=== PATIENT | female | born 1940 | race Caucasian/White ===

== ENCOUNTER 2016-08-25 06:51 | Inpatient (IN) | payer OTHER ==
[~2016-08-25] VITALS: Ht 167.6 cm; Wt 70.0 kg
[2016-08-25] MEDS ORDERED: PROP10TA7 PO ×2 (07:18→10:33)
[2016-08-25] MEDS ORDERED: DILT-115 PO (07:18)
--- NOTE | 2016-08-25 07:38 | EMERGENCY ROOM VISIT NOTE ---
History First contact with patient: 06:59 Chief Complaint: SWELLING TO EXTREMITY Stated Complaint: SWOLLEN RIGHT LEG History of Present Illness The patient is a 76 year old female who presents to the Emergency Room with complaints of right leg pain. The patient states that 2 days ago she noticed pain in the right medial thigh. She states it has progressively worsened. She describes it as a pulling sensation and rates her discomfort an 8/10 at its worst. The patient states that she noticed redness yesterday. She states that the redness has worsened. She denies any fevers, chills, sweats, joint pain, nausea, vomiting, diarrhea. She denies any pain in her chest or trouble breathing. The patient does report that her daughter had edema in the past. She states that her brother has also had blood clots. She states she has never personally had a clots. They do not know of any family history of coagulopathy that has been diagnosed. Review of Systems A 10 system review of systems was completed with positives and pertinent negatives listed in the HPI. Past Medical/Surgical History Medical Problems: (1) CKD (chronic kidney disease) stage 3, GFR 30-59 ml/min (2) DVT (deep venous thrombosis) (3) Hypertension Surgical Problems: (1) History of tubal ligation Social History Smoking Status: Never Smoker Housing Status: lives with family Current/Historical Medications Scheduled Cholecalciferol (Vitamin D3), 2,000 UNITS PO DAILY Diltiazem Hcl Ext Rel (Tiazac), 240 MG PO DAILY Propranolol (Inderal), 15 MG PO DAILY Allergies Coded Allergies: No Known Allergies (Unverified , 08/25/16) Physical Exam Vital Signs Date Time Temp Pulse Resp B/P Pulse Ox O2 Delivery O2 Flow Rate FiO2 08/25/16 09:44 68 16 128/68 98 Room Air 08/25/16 08:23 70 18 147/83 98 Room Air 08/25/16 06:56 36.6 92 16 142/77 94 Room Air Physical Exam VITALS: Vitals are noted on the nurse's note and reviewed by myself. Vital signs stable. The patient is afebrile. GENERAL: This is a 76-year-old female, in no acute distress, nondiaphoretic, well-developed well-nourished. SKIN: There is macular erythema noted along the right medial thigh from the knee nearly to the groin. There is no fluctuance or drainage. There is no tenting of the skin. Capillary reflex less than 2 seconds. HEAD: Normocephalic atraumatic. EARS: The external ears are normal in appearance. EYES: Pupils equal round and reactive to light and accommodation. Conjunctivae without injection, sclerae without icterus. Extraocular movements intact. NOSE: Patent, turbinates without inflammation or discharge. MOUTH: Mucous membranes moist. Tonsils are not enlarged. Pharynx without erythema or exudate. Uvula midline. Airway patent. Tongue does not deviate. NECK: Supple without nuchal rigidity. No JVD. HEART: Regular rate and rhythm. LUNGS: Clear to auscultation bilaterally without wheezes, rales or rhonchi. No retractions or accessory muscle use. MUSCULOSKELETAL: No muscle atrophy, noted. Full range of motion without joint tenderness in all extremities. There is tenderness to palpation only over the area of erythema. Normal gait. Strength 5/5 throughout. NEURO: Patient was alert and oriented to person place and time. No focal neurological deficits. Medical Decision & Procedures ER Provider Diagnostic Interpretation: RIGHT LOWER EXTREMITY VENOUS DOPPLER HISTORY: right leg pain, redness medial thigh Right COMPARISON STUDY: None. FINDINGS: There is thrombus identified within the right common femoral vein, greater saphenous vein, superficial femoral vein, popliteal vein, posterior tibial veins, and peroneal veins. IMPRESSION: Extensive right lower extremity superficial and deep vein thrombosis as described above. Laboratory Results 08/25/16 07:37 Red Blood Count 4.64, Mean Corpuscular Volume 87.3, Mean Corpuscular Hemoglobin 30.4, Mean Corpuscular Hemoglobin Concent 34.8, Mean Platelet Volume 9.2, Neutrophils (%) (Auto) 80.6, Lymphocytes (%) (Auto) 10.7, Monocytes (%) (Auto) 7.5, Eosinophils (%) (Auto) 0.8, Basophils (%) (Auto) 0.3, Neutrophils # (Auto) 5.93, Lymphocytes # (Auto) 0.79, Monocytes # (Auto) 0.55, Eosinophils # (Auto) 0.06, Basophils # (Auto) 0.02 08/25/16 07:37 Test 08/25/16 07:37 White Blood Count 7.36 K/uL (4.8-10.8) Red Blood Count 4.64 M/uL (4.2-5.4) Hemoglobin 14.1 g/dL (12.0-16.0) Hematocrit 40.5 % (37-47) Mean Corpuscular Volume 87.3 fL (80-100) Mean Corpuscular Hemoglobin 30.4 pg (25-34) Mean Corpuscular Hemoglobin Concent 34.8 g/dl (32-36) Platelet Count 172 K/uL (130-400) Mean Platelet Volume 9.2 fL (7.4-10.4) Neutrophils (%) (Auto) 80.6 % Lymphocytes (%) (Auto) 10.7 % Monocytes (%) (Auto) 7.5 % Eosinophils (%) (Auto) 0.8 % Basophils (%) (Auto) 0.3 % Neutrophils # (Auto) 5.93 K/uL (1.4-6.5) Lymphocytes # (Auto) 0.79 K/uL (1.2-3.4) Monocytes # (Auto) 0.55 K/uL (0.11-0.59) Eosinophils # (Auto) 0.06 K/uL (0-0.5) Basophils # (Auto) 0.02 K/uL (0-0.2) RDW Standard Deviation 44.2 fL (36.4-46.3) RDW Coefficient of Variation 14.0 % (11.5-14.5) Immature Granulocyte % (Auto) 0.1 % Immature Granulocyte # (Auto) 0.01 K/uL (0.00-0.02) Prothrombin Time 10.9 SECONDS (9.0-12.0) Prothromb Time International Ratio 1.0 (0.9-1.1) Activated Partial Thromboplast Time 31.5 SECONDS (21.0-31.0) Partial Thromboplastin Ratio 1.2 Anion Gap 7.0 mmol/L (3-11) Est Creatinine Clear Calc Drug Dose 36.7 ml/min Estimated GFR () 50.5 Estimated GFR (Non- 43.6 BUN/Creatinine Ratio 17.8 (10-20) Calcium Level 8.9 mg/dl (8.5-10.1) Total Bilirubin 0.5 mg/dl (0.2-1) Aspartate Amino Transf (AST/SGOT) 23 U/L (15-37) Alanine Aminotransferase (ALT/SGPT) 19 U/L (12-78) Alkaline Phosphatase 87 U/L (45-117) Total Protein 7.5 gm/dl (6.4-8.2) Albumin 3.1 gm/dl (3.4-5.0) Globulin 4.4 gm/dl (2.5-4.0) Albumin/Globulin Ratio 0.7 (0.9-2) ED Course The patient was seen and examined. Previous visits were reviewed. The patient does not have a fever or leukocytosis. She is not anemic. She does not have any significant electrolyte abnormalities. Ultrasound of the right lower extremity reveals extensive superficial and deep vein thrombosis The patient has had right leg pain over the last several days. She has not had any chest pain or trouble breathing. She has extensive superficial and deep vein thromboses in the right leg. There is a reported history of blood clots but no diagnosis of genetic coagulopathy. The patient would benefit from further evaluation and management in the hospital. [facility] patient. The patient was also seen and examined by who agrees with the assessment and treatment plan. Medical Decision The differential diagnosis includes cellulitis, DVT, superficial thrombophlebitis, PE, among others Impression Primary Impression: DVT (deep venous thrombosis) Additional Impressions: Phlebitis Pain and swelling of right lower extremity Departure Information Referrals Jazz Artis PA-C (PCP) Patient Instructions [facility] Problem Qualifiers Primary Impression: DVT (deep venous thrombosis)
[2016-08-25 08:01] LABS: HEMATOCRIT 40.5 % (37-47); MEAN CELL VOLUME 87.3 fL (80-100); MEAN CORPUSCULAR HEMOGLOBIN 30.4 pg (25-34); MEAN CORPUSCULAR HGB CONC 34.8 g/dl (32-36); MEAN PLATELET VOLUME 9.2 fL (7.4-10.4); PLATELET COUNT 172 K/uL (130-400); RED BLOOD COUNT 4.64 M/uL (4.2-5.4); WHITE BLOOD COUNT 7.36 K/uL (4.8-10.8)
[2016-08-25 08:09] LABS: PARTIAL THROMBOPLASTIN RATIO 1.2; PROTHROMBIN TIME (PATIENT) 10.9 SECONDS (9.0-12.0)
[2016-08-25 08:18] LABS: BUN/CREATININE RATIO 17.8 (10-20); CALCIUM 8.9 mg/dl (8.5-10.1); CREATININE 1.2 mg/dl (0.60-1.20)
[2016-08-25 08:21] LABS: ALB/GLOB RATIO 0.7 (0.9-2)
[2016-08-25 08:23] LABS: BASO % 0.3 %; BASO ABS # 0.02 K/uL (0-0.2); COMPLETE YES; EOS % 0.8 %; IG% 0.1 %; LYMPH % 10.7 %; LYMPH ABS # 0.79 K/uL (1.2-3.4); MONO % 7.5 %; NEUT % 80.6 %
--- NOTE | 2016-08-25 08:59 | DIAGNOSTIC IMAGING REPORT ---
RIGHT LOWER EXTREMITY VENOUS DOPPLER HISTORY: right leg pain, redness medial thigh Right COMPARISON STUDY: None. FINDINGS: There is thrombus identified within the right common femoral vein, greater saphenous vein, superficial femoral vein, popliteal vein, posterior tibial veins, and peroneal veins. IMPRESSION: Extensive right lower extremity superficial and deep vein thrombosis as described above. Electronically signed by: Lalo Nina M.D. 08/25/2016 8:57 AM Dictated Date/Time: 08/25/2016 8:56 AM
--- NOTE | 2016-08-25 09:33 | EMERGENCY ROOM VISIT NOTE ---
ED Visit Note First contact with patient: 06:59 76-year-old female with right leg pain and swelling. The patient was fully evaluated by Kim Thomason PA-C. Please see her note. I also independently evaluated the patient. DVT was seen on ultrasound. The patient's significant swelling and therefore will should be admitted for anticoagulation therapy.
[2016-08-25] MEDS ORDERED: ACETAMINOPHEN 325 MG TAB PO PRN (10:15)
[2016-08-25] MEDS ORDERED: ONDANSETRON INJ 2 MG/ML 2 ML VIAL IV PRN (10:15)
[2016-08-25] MEDS ORDERED: PROP80TA2 PO (10:26)
[2016-08-25] MEDS ORDERED: CHOL1000 PO (10:26)
--- NOTE | 2016-08-25 10:48 | History and Physical ---
History & Physical Date & Time of Service: Aug 25, 2016 at 10:35 Chief Complaint: Swollen Right Leg Primary Care Physician: Jazz Artis PA-C History of Present Illness Source: patient This is a 76 y/o female with PMHx of CKD stage 3 and HTN who presents to the ED c/o RLE pain x 2 days. Pt reports that 2 days ago she developed R medial thigh pain that she describes as "achy" pain that increases to an 8/10 when she stands. Over the past 2 days the R medial thigh became progressively more painful, erythematous and swollen. Pt denies recent surgeries or travel. Pt has no history of blood clots but she does have a + FmHx of clots. Pt denies fever/ chills, diaphoresis, chest pain, palpitations, SOB, abd pain, N/V, bowel or bladder issues, lightheadedness/dizziness. In the ED, vitals are stable. labs reviewed are unremarkable. RLE US + extensive RLE superficial and DVT. Pt will be admitted for further evaluation and treatment. Past Medical/Surgical History Medical Problems: (1) CKD (chronic kidney disease) stage 3, GFR 30-59 ml/min Status: Chronic (2) Hypertension Status: Chronic Surgical Problems: (1) History of tubal ligation Status: Resolved Social History Smoking Status: Never Smoker Alcohol Use: none Drug Use: none Allergies Coded Allergies: No Known Allergies (Unverified , 08/25/16) Home Medications Scheduled Cholecalciferol (Vitamin D3), 2,000 UNITS PO DAILY Diltiazem Hcl Ext Rel (Tiazac), 240 MG PO DAILY Propranolol (Inderal), 15 MG PO DAILY Review of Systems Constitutional: No chills, No fatigue, No fever, No sweats, No weakness Eyes: No worsening of vision ENT: No hearing loss Respiratory: No cough, No shortness of breath Cardiovascular: + edema, No chest pain, No claudication, No palpitations Abdomen: No constipation, No diarrhea, No nausea, No pain, No vomiting Musculoskeletal: + swelling, No calf pain Genitourinary - Female: No dysuria Neurologic: No weakness Psychiatric: No depression symptoms Endocrine: No fatigue Hematologic / Lymphatic: No abnormal bleeding/bruising Integumentary: No new/changing skin lesions Physical Exam Vital Signs Date Time Temp Pulse Resp B/P Pulse Ox O2 Delivery O2 Flow Rate FiO2 4/4/17 09:44 68 16 128/68 98 Room Air 08/25/16 08:23 70 18 147/83 98 Room Air 08/25/16 06:56 36.6 92 16 142/77 94 Room Air General Appearance: WD/WN, no apparent distress, + pertinent finding (Pt is sitting in bed with daughter at bedside ) Head: normocephalic, atraumatic Eyes: normal inspection ENT: hearing grossly normal Neck: supple Respiratory/Chest: chest non-tender, lungs clear, normal breath sounds, no respiratory distress Cardiovascular: regular rate, rhythm, no murmur Abdomen/GI: normal bowel sounds, non tender, soft Back: normal inspection Extremities/Musculoskelatal: no pedal edema, + pertinent finding (swelling and erythema noted to R medial thigh) Neurologic/Psych: alert, normal mood/affect, oriented x 3 Skin: normal color, warm/dry Diagnostics Laboratory Results Results Past 24 Hours Test 08/25/16 07:37 08/25/16 10:15 Range/Units White Blood Count 7.36 4.8-10.8 K/uL Red Blood Count 4.64 4.2-5.4 M/uL Hemoglobin 14.1 12.0-16.0 g/dL Hematocrit 40.5 37-47 % Mean Corpuscular Volume 87.3 80-100 fL Mean Corpuscular Hemoglobin 30.4 25-34 pg Mean Corpuscular Hemoglobin Concent 34.8 32-36 g/dl Platelet Count 172 130-400 K/uL Mean Platelet Volume 9.2 7.4-10.4 fL Neutrophils (%) (Auto) 80.6 % Lymphocytes (%) (Auto) 10.7 % Monocytes (%) (Auto) 7.5 % Eosinophils (%) (Auto) 0.8 % Basophils (%) (Auto) 0.3 % Neutrophils # (Auto) 5.93 1.4-6.5 K/uL Lymphocytes # (Auto) 0.79 1.2-3.4 K/uL Monocytes # (Auto) 0.55 0.11-0.59 K/uL Eosinophils # (Auto) 0.06 0-0.5 K/uL Basophils # (Auto) 0.02 0-0.2 K/uL RDW Standard Deviation 44.2 36.4-46.3 fL RDW Coefficient of Variation 14.0 11.5-14.5 % Immature Granulocyte % (Auto) 0.1 % Immature Granulocyte # (Auto) 0.01 0.00-0.02 K/uL Prothrombin Time 10.9 9.0-12.0 SECONDS Prothromb Time International Ratio 1.0 0.9-1.1 Activated Partial Thromboplast Time 31.5 21.0-31.0 SECONDS Partial Thromboplastin Ratio 1.2 Sodium Level 141 136-145 mmol/L Potassium Level 4.0 3.5-5.1 mmol/L Chloride Level 106 98-107 mmol/L Carbon Dioxide Level 28 21-32 mmol/L Anion Gap 7.0 3-11 mmol/L Blood Urea Nitrogen 21 7-18 mg/dl Creatinine 1.20 0.60-1.20 mg/dl Est Creatinine Clear Calc Drug Dose 36.7 ml/min Estimated GFR () 50.5 Estimated GFR (Non- 43.6 BUN/Creatinine Ratio 17.8 10-20 Random Glucose 107 70-99 mg/dl Calcium Level 8.9 8.5-10.1 mg/dl Total Bilirubin 0.5 0.2-1 mg/dl Aspartate Amino Transf (AST/SGOT) 23 15-37 U/L Alanine Aminotransferase (ALT/SGPT) 19 12-78 U/L Alkaline Phosphatase 87 45-117 U/L Total Protein 7.5 6.4-8.2 gm/dl Albumin 3.1 3.4-5.0 gm/dl Globulin 4.4 2.5-4.0 gm/dl Albumin/Globulin Ratio 0.7 0.9-2 Diagnostic Radiology RLE US IMPRESSION: Extensive right lower extremity superficial and deep vein thrombosis as described above. Impression Assessment and Plan EXTENSIVE RLE DVT pt presented with RLE pain, erythema and swelling; no h/o blood clots -admit to med/surg -vitals stable; saturating well on room air -RLE US + extensive RLE superficial and DVT -obtain hypercoagulable workup -start Coumadin and bridge with Lovenox -monitor INR daily CKD STAGE 3 -creatinine 1.2 (baseline =1.6-1.8) -continue to monitor prp and avoid nephrotoxic agents when able -follows with paula Ramos HTN -BP stable -cont diltiazem and propranolol -monitor DVT PROPHYLAXIS -Lovenox; transition to Coumadin CODE STATUS -DNR per discussion with patient upon admission DISPO Pt seen in collaboration with Dr. Robles. Please see his addendum for further details. Thanks! ATTENDING NOTE Patient seen & examined at bedside. Reviewed the above History & Physical and confirmed the findings in person. Patient is diagnosed with a new Acute DVT in Right Lower Extremity. No provoking factor as per detailed history. Has been started on therapeutic dose of Lovenox as well Coumadin. Will follow Creatinine closely. Will follow PT/INR. Patient id DNR. Answered all the questions of the patient. Dick Robles MD Level of Care Med/Surg Resuscitation Status DO NOT RESUSCITATE VTE Prophylaxis VTE Risk Assessment Done? Y/N: Yes Risk Level: Moderate Given or contraindicated: Enoxaparin (Lovenox)SQ, Warfarin (Coumadin)
[2016-08-25 11:35] VITALS: BP 135/78; PULSE 65; TEMP 36.9; O2SAT 96; Ht 167.6 cm; Wt 70.0 kg
[2016-08-25 11:45] VITALS: O2SAT 96
[2016-08-25] MEDS ORDERED: WARFARIN SOD 5 MG TAB PO ONE (12:05)
[2016-08-25] MEDS: ENOXAPARIN 80 MG/0.8 ML SYR SQ SCH ×2 (14:46→23:09)
[2016-08-25 15:14] VITALS: BP 133/65; PULSE 65; TEMP 37.3; O2SAT 93
[2016-08-25 23:06] VITALS: BP 133/76; PULSE 70; TEMP 36.9; O2SAT 93
[2016-08-26 07:02] LABS: HEMATOCRIT 39.1 % (37-47); MEAN CELL VOLUME 87.7 fL (80-100); MEAN CORPUSCULAR HEMOGLOBIN 30.3 pg (25-34); MEAN CORPUSCULAR HGB CONC 34.5 g/dl (32-36); MEAN PLATELET VOLUME 9.5 fL (7.4-10.4); PLATELET COUNT 171 K/uL (130-400); RED BLOOD COUNT 4.46 M/uL (4.2-5.4); WHITE BLOOD COUNT 6.16 K/uL (4.8-10.8)
[2016-08-26 07:11] LABS: INR 1.1 (0.9-1.1); PROTHROMBIN TIME (PATIENT) 11.6 SECONDS (9.0-12.0)
[2016-08-26 07:29] LABS: BUN/CREATININE RATIO 15.7 (10-20); CALCIUM 8.8 mg/dl (8.5-10.1); CREATININE 1.3 mg/dl (0.60-1.20)
[2016-08-26 07:50] VITALS: BP 136/62; PULSE 74; TEMP 36.9; O2SAT 93
[2016-08-26 08:29] VITALS: O2SAT 93
[2016-08-26] MEDS ORDERED: PROPRANOLOL HCL 80 MG TAB PO SCH (09:00)
[2016-08-26] MEDS: CHOLECALCIFEROL 1000 INTER.UNIT TAB PO SCH (09:15)
[2016-08-26] MEDS: DILTIAZEM HCL 120 MG EXT REL CAP PO SCH (09:16)
[2016-08-26] MEDS: PROPRANOLOL HCL 10 MG TAB PO SCH (09:16)
[2016-08-26] MEDS: ENOXAPARIN 80 MG/0.8 ML SYR SQ SCH ×2 (09:18→21:43)
[2016-08-26 15:29] VITALS: BP 112/57; PULSE 60; TEMP 36.7; O2SAT 94
[2016-08-26] MEDS ORDERED: WARFARIN SOD 7.5 MG TAB PO SCH (16:00)
[2016-08-26] MEDS ORDERED: WARFARIN SOD 5 MG TAB PO SCH (16:00)
--- NOTE | 2016-08-26 18:04 | Progress Note ---
Internal Med Progress Note Date of Service: Aug 26, 2016. Provider Documentation: SUBJECTIVE: Patient is sitting comfortably in her bed and is in no acute distress. Denies any SOB or chest pain/pressure. Pain in the right leg is less in intensity. She has been able to ambulate short distances in the hallway. OBJECTIVE: Vital Signs-as noted below Examination: General Appearance: WD/WN, Sitting in her bed in no apparent distress, Head: normocephalic, atraumatic Eyes: normal inspection ENT: hearing grossly normal. Ears, Nose & Throat are normal looking. Neck: supple, midline trachea, No JVD. Respiratory/Chest: chest non-tender, lungs clear, normal breath sounds, no respiratory distress Cardiovascular: regular rate, rhythm, no murmur Abdomen/GI: normal bowel sounds, non tender, soft Back: normal inspection Extremities/Musculoskeletal: no pedal edema, swelling and erythema noted to R medial thigh which is resolving. Neurologic/Psych: alert, normal mood/affect, oriented x 3 Skin: normal color, warm/dry Lab data as noted below. ASSESSMENT & PLAN: Extensive Right Lower Extremity DVT: Patient presented with RLE pain, erythema and swelling; no h/o blood clots Clinically & hemodynamically stable. RLE US + extensive RLE superficial and DVT -Hypercoagulable workup is pending -Continue Coumadin and bridge with Lovenox for total minimum 5 days -monitor INR daily History Hypertension: BP stable -Continue diltiazem and propranolol -Monitor BP closely. CKD Stage III: Creatinine 1.3 (baseline =1.6-1.8) -continue to monitor prp and avoid nephrotoxic agents when able -Follows with paula Ramos -Avoid any Nephrotoxin DVT Prophylaxis: Sq Lovenox; Code Status: DNR per discussion with patient upon admission Disposition: Pending. Vital Signs: Date Time Temp Pulse Resp B/P Pulse Ox O2 Delivery O2 Flow Rate FiO2 08/26/16 15:29 36.7 60 16 112/57 94 Room Air 08/26/16 08:29 93 Room Air 08/26/16 07:50 36.9 74 16 136/62 93 Room Air 08/26/16 07:45 Room Air 08/25/16 23:06 36.9 70 16 133/76 93 Room Air 08/25/16 19:45 Room Air Lab Results: Results Past 24 Hours Test 08/26/16 06:22 Range/Units White Blood Count 6.16 4.8-10.8 K/uL Red Blood Count 4.46 4.2-5.4 M/uL Hemoglobin 13.5 12.0-16.0 g/dL Hematocrit 39.1 37-47 % Mean Corpuscular Volume 87.7 80-100 fL Mean Corpuscular Hemoglobin 30.3 25-34 pg Mean Corpuscular Hemoglobin Concent 34.5 32-36 g/dl RDW Standard Deviation 45.2 36.4-46.3 fL RDW Coefficient of Variation 14.1 11.5-14.5 % Platelet Count 171 130-400 K/uL Mean Platelet Volume 9.5 7.4-10.4 fL Prothrombin Time 11.6 9.0-12.0 SECONDS Prothromb Time International Ratio 1.1 0.9-1.1 Sodium Level 142 136-145 mmol/L Potassium Level 4.0 3.5-5.1 mmol/L Chloride Level 106 98-107 mmol/L Carbon Dioxide Level 28 21-32 mmol/L Anion Gap 8.0 3-11 mmol/L Blood Urea Nitrogen 20 7-18 mg/dl Creatinine 1.30 0.60-1.20 mg/dl Est Creatinine Clear Calc Drug Dose 33.9 ml/min Estimated GFR () 45.8 Estimated GFR (Non- 39.5 BUN/Creatinine Ratio 15.7 10-20 Random Glucose 91 70-99 mg/dl Calcium Level 8.8 8.5-10.1 mg/dl
[2016-08-26 23:31] VITALS: BP 133/70; PULSE 67; TEMP 36.8; O2SAT 93
[2016-08-27 07:18] LABS: INR 1.1 (0.9-1.1); PROTHROMBIN TIME (PATIENT) 11.6 SECONDS (9.0-12.0)
[2016-08-27 07:29] VITALS: BP 127/74; PULSE 72; TEMP 36.7; O2SAT 96
[2016-08-27] MEDS: PROPRANOLOL HCL 10 MG TAB PO SCH (10:35)
[2016-08-27] MEDS: CHOLECALCIFEROL 1000 INTER.UNIT TAB PO SCH (10:36)
[2016-08-27] MEDS: DILTIAZEM HCL 120 MG EXT REL CAP PO SCH (10:37)
[2016-08-27] MEDS: ENOXAPARIN 80 MG/0.8 ML SYR SQ SCH ×2 (10:38→21:19)
[2016-08-27 15:04] VITALS: BP 124/74; PULSE 60; TEMP 36.7; O2SAT 93
[2016-08-27] MEDS: WARFARIN SOD 10 MG TAB PO SCH (15:40)
--- NOTE | 2016-08-27 16:29 | Progress Note ---
Internal Med Progress Note Date of Service: Aug 27, 2016. Provider Documentation: SUBJECTIVE: Patient is sitting comfortably in her bed and is in no acute distress. Denies any SOB or chest pain/pressure. Pain in the right leg is less in intensity. She has been able to ambulate short distances in the hallway. OBJECTIVE: Vital Signs-as noted below Examination: General Appearance: WD/WN, Sitting in her bed in no apparent distress, Head: normocephalic, atraumatic Eyes: normal inspection ENT: hearing grossly normal. Ears, Nose & Throat are normal looking. Neck: supple, midline trachea, No JVD. Respiratory/Chest: chest non-tender, lungs clear, normal breath sounds, no respiratory distress Cardiovascular: regular rate, rhythm, no murmur Abdomen/GI: normal bowel sounds, non tender, soft Back: normal inspection Extremities/Musculoskeletal: no pedal edema, swelling and erythema noted to R medial thigh which is resolving. Neurologic/Psych: alert, normal mood/affect, oriented x 3 Skin: normal color, warm/dry Lab data as noted below. ASSESSMENT & PLAN: Extensive Right Lower Extremity DVT: Patient presented with RLE pain, erythema and swelling; no h/o blood clots Clinically & hemodynamically stable. RLE US + extensive RLE superficial and DVT -Hypercoagulable workup is pending -Continue Coumadin and bridge with Lovenox for total minimum 5 days -monitor INR daily -Will start teaching self-injection to patient History Hypertension: BP stable -Continue diltiazem and propranolol -Monitor BP closely. CKD Stage III: Creatinine 1.3 (baseline =1.6-1.8) -continue to monitor prp and avoid nephrotoxic agents when able -Follows with paula Ramos -Avoid any Nephrotoxin DVT Prophylaxis: Sq Lovenox; Code Status: DNR per discussion with patient upon admission Disposition: Pending. Vital Signs: Date Time Temp Pulse Resp B/P Pulse Ox O2 Delivery O2 Flow Rate FiO2 08/27/16 15:04 36.7 60 16 124/74 93 Room Air 08/27/16 10:55 Room Air 08/27/16 08:00 Room Air 08/27/16 07:29 36.7 72 16 127/74 96 Room Air 08/26/16 23:31 36.8 67 16 133/70 93 Room Air 08/26/16 20:30 Room Air Lab Results: Results Past 24 Hours Test 08/27/16 06:11 Range/Units Prothrombin Time 11.6 9.0-12.0 SECONDS Prothromb Time International Ratio 1.1 0.9-1.1
[2016-08-27 23:20] VITALS: BP 110/60; PULSE 66; TEMP 36.6; O2SAT 91
[2016-08-28 07:27] LABS: INR 1.3 (0.9-1.1); PROTHROMBIN TIME (PATIENT) 13.6 SECONDS (9.0-12.0)
[2016-08-28 07:38] VITALS: BP 129/76; PULSE 73; TEMP 36.6; O2SAT 94
[2016-08-28 07:55] LABS: BUN/CREATININE RATIO 23.1 (10-20); CALCIUM 8.7 mg/dl (8.5-10.1); CREATININE 1.3 mg/dl (0.60-1.20); POTASSIUM 3.9 mmol/L (3.5-5.1)
[2016-08-28] MEDS: PROPRANOLOL HCL 10 MG TAB PO SCH (09:40)
[2016-08-28] MEDS: DILTIAZEM HCL 120 MG EXT REL CAP PO SCH (09:41)
[2016-08-28] MEDS: CHOLECALCIFEROL 1000 INTER.UNIT TAB PO SCH (09:41)
[2016-08-28] MEDS: ENOXAPARIN 80 MG/0.8 ML SYR SQ SCH (09:42)
--- NOTE | 2016-08-28 14:47 | Progress Note ---
Internal Med Progress Note Date of Service: Aug 28, 2016. Provider Documentation: SUBJECTIVE: Patient is sitting comfortably in her bed and is in no acute distress. Denies any SOB or chest pain/pressure. Pain in the right leg is less in intensity. She has been able to ambulate short distances in the hallway. OBJECTIVE: Vital Signs-as noted below Examination: General Appearance: WD/WN, Sitting in her bed in no apparent distress, Head: normocephalic, atraumatic Eyes: normal inspection ENT: hearing grossly normal. Ears, Nose & Throat are normal looking. Neck: supple, midline trachea, No JVD. Respiratory/Chest: chest non-tender, lungs clear, normal breath sounds, no respiratory distress Cardiovascular: regular rate, rhythm, no murmur Abdomen/GI: normal bowel sounds, non tender, soft Back: normal inspection Extremities/Musculoskeletal: no pedal edema, swelling and erythema noted to R medial thigh which is resolving. Neurologic/Psych: alert, normal mood/affect, oriented x 3 Skin: normal color, warm/dry Lab data as noted below. ASSESSMENT & PLAN: Extensive Right Lower Extremity DVT: Patient presented with RLE pain, erythema and swelling; no h/o blood clots Clinically & hemodynamically stable. RLE US + extensive RLE superficial and DVT -Hypercoagulable workup is pending -Continue Coumadin and bridge with Lovenox for total minimum 5 days -monitor INR daily -Started teaching self-injection to patient History Hypertension: BP stable -Continue diltiazem and propranolol -Monitor BP closely. CKD Stage III: Creatinine 1.3 (baseline =1.6-1.8) -continue to monitor prp and avoid nephrotoxic agents when able -Follows with paula Ramos -Avoid any Nephrotoxin DVT Prophylaxis: Sq Lovenox; Code Status: DNR per discussion with patient upon admission Disposition: Patient will be discharged home later today on both Coumadin and Lovenox. She will follow up in [facility] on Wednesday and they will be adjusting the dose of Coumadin. Once has therapeutic INR for 48 hours, will stop Lovenox. Follow up with PCP in the next 3-5 days after discharge. Follow up in [facility] on 08/29/2016. Vital Signs: Date Time Temp Pulse Resp B/P Pulse Ox O2 Delivery O2 Flow Rate FiO2 08/28/16 07:38 36.6 73 16 129/76 94 Room Air 08/28/16 07:30 Room Air 08/27/16 23:20 36.6 66 18 110/60 91 Room Air 08/27/16 23:15 Room Air 08/27/16 15:50 Room Air 08/27/16 15:04 36.7 60 16 124/74 93 Room Air Lab Results: Results Past 24 Hours Test 08/28/16 06:49 Range/Units Prothrombin Time 13.6 9.0-12.0 SECONDS Prothromb Time International Ratio 1.3 0.9-1.1 Sodium Level 143 136-145 mmol/L Potassium Level 3.9 3.5-5.1 mmol/L Chloride Level 106 98-107 mmol/L Carbon Dioxide Level 30 21-32 mmol/L Anion Gap 7.0 3-11 mmol/L Blood Urea Nitrogen 30 7-18 mg/dl Creatinine 1.30 0.60-1.20 mg/dl Est Creatinine Clear Calc Drug Dose 33.9 ml/min Estimated GFR () 45.8 Estimated GFR (Non- 39.5 BUN/Creatinine Ratio 23.1 10-20 Random Glucose 84 70-99 mg/dl Calcium Level 8.7 8.5-10.1 mg/dl
[2016-08-28] MEDS ORDERED: CMD10 PO (14:48)
[2016-08-28] MEDS ORDERED: LVNIS80 SQ (14:48)
--- NOTE | 2016-08-28 14:52 | Discharge Instructions ---
Discharge Instructions Date of Service Aug 28, 2016. Admission Reason for Admission: DVT Discharge Discharge Diagnosis / Problem: (1) DVT (deep venous thrombosis) VTE Date & Time Date of VTE Diagnosis: Aug 25, 2016 Time of VTE Diagnosis: 08:56 Discharge Goals Goal(s): Decrease discomfort, Improve function, Increase independence, Improve disease control, Improve nutritional status, Learn about illness, Diagnostic testing, Therapeutic intervention Activity Recommendations Activity Limitations: resume your previous activity (As tolerated gradually.) Lifting Limitations: gradually increase as tolerated Exercise/Sports Limitations: gradually increase as tolerated Shower/Bathe: no limitations . Instructions / Follow-Up Instructions / Follow-Up Medication Instructions: * Warfarin is a medicine prescribed to prevent blood clots * Warfarin will thin your blood and help prevent new clots * Take your medications exactly as directed * Never skip a dose. Never take a double dose. If you miss a dose, take it as soon as you remember * It is important for your doctor to monitor your prothrombin time (PT). This is a lab test * Keep your appointment for lab tests Risk of Adverse Drug Reactions and Interactions: * Warfarin increases your risk of bleeding * The food you eat and other medications you take can affect how Warfarin works in your body * Ask your doctor about daily aspirin therapy * It is very important to talk with your doctor about all of the other medicines , antibiotics, vitamins or herbal products that you are taking * All of your medication must be approved by your doctor, including new medicines, as well as medicines you have taken before you started taking Warfarin Diet: * In order for Warfarin to work properly, it is important to keep your intake of Vitamin K as consistent as possible * You should avoid any sudden change in Vitamin K intake * Report any significant changes in your diet or weight to your doctor Call your Primary Care doctor if you experience any of the following: * Swelling or Pain in your leg * Sudden, continuous pain deep in a muscle * Pain that worsens when you are active or when you stand still for a long time * Chest Pain * Sudden Shortness of Breath * Rapid or pounding heart beat * Fainting * Dizziness * Cough with blood or bloody sputum * Sweating more than normal * Bruises * Heavy or uncontrolled bleeding * Blood in your urine, stool or vomit * Black or tarry stools Caring for Your Self at Home: * Avoid sitting, standing or lying down for long periods without moving your legs and feet * When traveling by car, stop to get out and move around at least once every 3 hours * On long airplane, train or bus rides, get up and move around when possible * If you can't get up, wiggle your toes and tighten your calves to keep your blood moving Follow Up: It is important for you to keep your follow up appointments with your medical provider. Follow up with PCP in the next 3-5 days after discharge. Follow up in [facility] on 08/29/2016. Their telephone number is . Current Hospital Diet Patient's current hospital diet: Regular Diet Discharge Diet Recommended Diet: Regular Diet Pending Studies Studies pending at discharge: no Medical Emergencies . Who to Call and When: Medical Emergencies: If at any time you feel your situation is an emergency, please call 911 immediately. . Non-Emergent Contact Non-Emergency issues call your: Primary Care Provider . . "Provider Documentation" section prepared by Dick Robles. VTE Core Measure Inpt VTE Proph given/why not?: Enoxaparin (Lovenox)SQ, Warfarin (Coumadin) Reason no anticoag overlap I/P: Treatment provided - N/A Reason no anticoag overlap @DC: Treatment provided - N/A
--- NOTE | 2016-08-28 14:55 | Discharge Summary ---
Discharge Summary Date of Service Aug 28, 2016. Discharge Summary Admission Date: Aug 25, 2016 at 10:20 Discharge Date: Aug 28, 2016 Principal Diagnosis: Acute Right Lower Extremity DVT Secondary Diagnoses/Problems: Hypertension CKD Stage III Procedures: RIGHT LOWER EXTREMITY VENOUS DOPPLER HISTORY: right leg pain, redness medial thigh COMPARISON STUDY: None. FINDINGS: There is thrombus identified within the right common femoral vein, greater saphenous vein, superficial femoral vein, popliteal vein, posterior tibial veins, and peroneal veins. IMPRESSION: Extensive right lower extremity superficial and deep vein thrombosis as described above. Vaccinations: NONE Consultations: NONE Pending Studies/Follow-Up: Follow up in [facility] for follow up of PT/INR. Medication Reconciliation New Medications: Enoxaparin (Lovenox) 80 Mg/0.8 Ml Inj 70 MG SQ Q12 for 7 Days Warfarin Sod (Coumadin) 10 Mg Tab 10 MG PO DAILY@16 for 10 Days, TAB Continued Medications: Cholecalciferol (Vitamin D3) 1,000 Unit Tab 2000 UNITS PO DAILY for 30 Days, TAB 5 Refills Diltiazem Hcl Ext Rel (Tiazac) 240 Mg Capcr 240 MG PO DAILY, CAP Propranolol (Inderal) 10 Mg Tab 15 MG PO DAILY, TAB Admission Information HPI (per Admitting provider): This is a 76 y/o female with PMHx of CKD stage 3 and HTN who presents to the ED c/o RLE pain x 2 days. Pt reports that 2 days ago she developed R medial thigh pain that she describes as "achy" pain that increases to an 8/10 when she stands. Over the past 2 days the R medial thigh became progressively more painful, erythematous and swollen. Pt denies recent surgeries or travel. Pt has no history of blood clots but she does have a + FmHx of clots. Pt denies fever/ chills, diaphoresis, chest pain, palpitations, SOB, abd pain, N/V, bowel or bladder issues, lightheadedness/dizziness. In the ED, vitals are stable. labs reviewed are unremarkable. RLE US + extensive RLE superficial and DVT. Pt will be admitted for further evaluation and treatment. Physical Exam (per Admitting): General Appearance: WD/WN, no apparent distress, + pertinent finding (Pt is sitting in bed with daughter at bedside ) Head: normocephalic, atraumatic Eyes: normal inspection ENT: hearing grossly normal Neck: supple Respiratory/Chest: chest non-tender, lungs clear, normal breath sounds, no respiratory distress Cardiovascular: regular rate, rhythm, no murmur Abdomen/GI: normal bowel sounds, non tender, soft Back: normal inspection Extremities/Musculoskelatal: no pedal edema, + pertinent finding (swelling and erythema noted to R medial thigh) Neurologic/Psych: alert, normal mood/affect, oriented x 3 Skin: normal color, warm/dry Hospital Course Extensive Right Lower Extremity DVT: Patient presented with RLE pain, erythema and swelling; no h/o blood clots Clinically & hemodynamically stable. RLE US + extensive RLE superficial and DVT -Hypercoagulable workup is pending -Continue Coumadin and bridge with Lovenox for total minimum 5 days -monitor INR daily -Started teaching self-injection to patient History Hypertension: BP stable -Continue diltiazem and propranolol -Monitor BP closely. CKD Stage III: Creatinine 1.3 (baseline =1.6-1.8) -continue to monitor prp and avoid nephrotoxic agents when able -Follows with nephleandra Ramos -Avoid any Nephrotoxin DVT Prophylaxis: Sq Lovenox; Code Status: DNR per discussion with patient upon admission Disposition: Patient will be discharged home later today on both Coumadin and Lovenox. She will follow up in [facility] on Wednesday and they will be adjusting the dose of Coumadin. Once has therapeutic INR for 48 hours, will stop Lovenox. Follow up with PCP in the next 3-5 days after discharge. Follow up in [facility] on 08/29/2016. Total time spent on discharge = 38 minutes. This includes examination of the patient, discharge planning, medication reconciliation, and communication with other providers. Discharge Instructions VTE Date & Time Date of VTE Diagnosis: Aug 25, 2016 Time of VTE Diagnosis: 08:56 Discharge Goals Goal(s): Decrease discomfort, Improve function, Increase independence, Improve disease control, Improve nutritional status, Learn about illness, Diagnostic testing, Therapeutic intervention Activity Recommendations Activity Limitations: resume your previous activity (As tolerated gradually.) Lifting Limitations: gradually increase as tolerated Exercise/Sports Limitations: gradually increase as tolerated Shower/Bathe: no limitations Additional Copies To Jazz Artis PA-C
[2016-08-28] MEDS ORDERED: CMD5 PO (15:09)
[2016-08-28 15:47] VITALS: BP 135/81; PULSE 64; TEMP 36.7; O2SAT 92
[2016-08-28 17:12] VITALS: BP 135/81; PULSE 64; TEMP 36.7; O2SAT 92
[2016-08-28] MEDS: WARFARIN SOD 10 MG TAB PO SCH (17:31)
[2016-08-31 11:27] LABS: ANTITHROMBINIII ACTIVITY** 78 % activity (80-120); PROTEIN C ACTIVITY** TC 1777X 79 % (70-180); PROTEIN S ACT(FUNCT)**1779X 68 % (60-140)
== END 2016-08-28 18:46 | disposition home or self-care (01) | DRG 301 ==
LOC: ENRESERVDT → ENRESERVTM → C.EDB 06:54 → C.MSW 10:20 → EDBEDREQ 10:29
PROVIDERS: ADMIT Emergency Medicine; ATTEND Emergency Medicine
DX: I82.411 Acute embolism and thrombosis of right femoral vein (principal); I82.431 Acute embolism and thrombosis of right popliteal vein; I82.441 Acute embolism and thrombosis of right tibial vein; I82.4Z1 Acute embolism and thrombosis of unspecified deep veins of right distal lower extremity; I82.491 Acute embolism and thrombosis of other specified deep vein of right lower extremity; I12.9 Hypertensive chronic kidney disease with stage 1 through stage 4 chronic kidney disease, or unspecified chronic kidney disease; N18.3 Chronic kidney disease, stage 3 (moderate); Z66 Do not resuscitate; Z83.2 Family history of diseases of the blood and blood-forming organs and certain disorders involving the immune mechanism; Z79.899 Other long term (current) drug therapy

== ENCOUNTER 2017-07-03 11:18 | Observation (INO) | payer OTHER ==
[~2017-07-03] VITALS: Ht 162.6 cm; Wt 69.9 kg
[~2017-07-03 11:18] MED LIST: CHOL1000 PO; CMD5 PO; DILT-115 PO; LVNIS80 SQ; PROP10TA7 PO
[2017-07-03] MEDS ORDERED: ASPIRIN 81 MG CHEW PO STA (11:30)
[2017-07-03] MEDS ORDERED: SODIUM CHLORIDE 0.9% 1000ML 1,000 ML IV STA (11:30)
[2017-07-03] MEDS: NITROGLYCERIN 0.4 MG SL PER TAB CHARGE SL PRN ×3 (11:47→12:03)
--- NOTE | 2017-07-03 11:51 | EMERGENCY ROOM VISIT NOTE ---
History Report prepared by Marie: Felix Casper Under the Supervision of: Dr. Perez Valdivia M.D. First contact with patient: 11:25 Chief Complaint: CARDIAC ASSESSMENT Stated Complaint: PRESSURE IN CHEST Nursing Triage Summary: pt reports "I have tightness in the center of my chest since last night I woke up to use the bathroom and couldnt go back to sleep ", pt denies radiation of pressure reports increased exertional sob , denies NV, HARO or vision changes History of Present Illness The patient is a 77 year old female who presents to the Emergency Room with complaints of constant chest heaviness that began 9.5 hours ago. She rates her level of discomfort as a 6/10 and notes that her pain does not radiate. The patient reports that she was sleeping when the chest heaviness began, and noticed the heaviness when she woke up to use the restroom. She is experiencing heaviness in the middle of her chest, lightheadedness, and jitteriness. The patient denies any loss of consciousness, shortness of breath, taking aspirin or nitroglycerine today, a history of a-fib or irregular heart rate, and taking her blood pressure medication this morning. She notes that she is on Coumadin as she has a history of blood clots. She reports that her last clot occurred in August 2016. Her last INR level was taken 1 month ago and was 2.1. The patient reports that she has a history of hypertension, and recently had her medication changed to Lisinopril. She notes there have been a few nights where she had to prop herself up with pillows to sleep comfortably, and she has not been diagnosed with CHF. 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 Source of History: patient Onset: 9.5 hours ago Position: chest Symptom Intensity: 6/10 Quality: other (heaviness) Timing: constant Associated Symptoms: No LOC, No SOB Note: Associated symptoms: lightheadedness, jitteriness Denies: taking aspirin or nitroglycerine today, a history of a-fib or irregular heart rate, and taking her blood pressure medication this morning Review of Systems See HPI for pertinent positives and negatives. A total of ten systems were reviewed and were otherwise negative. Past Medical & Surgical Medical Problems: (1) Chest pain (2) CKD (chronic kidney disease) stage 3, GFR 30-59 ml/min (3) DVT (deep venous thrombosis) (4) Hypertension Surgical Problems: (1) History of tubal ligation Family History Diabetes mellitus FH: cancer FH: heart disease Hypertension Social History Smoking Status: Never Smoker Drug Use: none Housing Status: lives with family Current/Historical Medications Scheduled Cholecalciferol (Vitamin D3), 2,000 UNITS PO DAILY Diltiazem Hcl Ext Rel (Tiazac), 240 MG PO DAILY Lisinopril (Prinivil), 5 MG PO DAILY Warfarin Sod (Coumadin), 5 MG PO QD Allergies Coded Allergies: No Known Allergies (Unverified , 07/03/17) Physical Exam Vital Signs Date Time Temp Pulse Resp B/P (MAP) Pulse Ox O2 Delivery O2 Flow Rate FiO2 07/03/17 16:10 62 07/03/17 15:18 60 14 95 07/03/17 15:01 159/78 07/03/17 14:48 60 10 93 07/03/17 14:31 170/87 07/03/17 14:23 146/81 07/03/17 14:23 66 18 146/81 95 07/03/17 14:18 57 14 93 07/03/17 13:48 51 11 95 07/03/17 12:48 57 13 96 07/03/17 12:27 137/72 07/03/17 12:27 66 18 137/72 96 07/03/17 12:18 69 13 97 07/03/17 12:09 127/95 07/03/17 12:09 81 18 127/95 96 07/03/17 12:02 78 18 130/77 97 07/03/17 12:02 130/77 07/03/17 12:01 77 07/03/17 11:53 141/91 07/03/17 11:53 81 18 141/91 97 07/03/17 11:49 99 Room Air 07/03/17 11:48 61 11 98 07/03/17 11:45 63 16 162/91 98 07/03/17 11:36 162/91 07/03/17 11:23 36.3 100 18 156/95 97 Room Air Physical Exam Physical Exam GENERAL: She is oriented to person, place, and time. She appears well- developed and well-nourished. z does not appear distressed. ____ HENT: Exam performed. Head: Normocephalic and atraumatic. Right Ear: External ear normal. No mastoid tenderness. Left Ear: External ear normal. No mastoid tenderness. Mouth/Throat: The oropharynx is clear and moist. No trismus in the jaw. No dental abscesses or uvula swelling. No oropharyngeal exudate or tonsillar abscesses. ____ EYES: Conjunctivae and EOM are normal. Pupils are equal, round, and reactive to light. Right eye exhibits no discharge. Left eye exhibits no discharge. No scleral icterus. ____ NECK: Normal range of motion. Neck supple. No JVD present. No spinous process tenderness present. No carotid bruit present. No rigidity. No tracheal deviation and normal range of motion present. No Brudzinski's sign and no Kernig 's sign noted. ____ CV: Normal rate, irregular rhythm, normal heart sounds and intact distal pulses. There is no peripheral edema. Palpable radial pulses bue. ____ PULM/CHEST: Effort normal and breath sounds normal. No respiratory distress. No stridor. She has no wheezes. She has no rales. Chest Wall: She exhibits no tenderness. ____ ABD: The abdomen is soft. Bowel sounds are normal. She has no distension. No mass is present. There is no tenderness. There is no rebound, no guarding, no Colunga's sign and no tenderness at McBurney's point. Rovsig negative MUSC/SKEL: Normal range of motion. There is no peripheral edema, tenderness or deformity. LYMPH: No cervical adenopathy. ____ NEURO: She is alert and oriented to person, place, and time. She has normal strength. No cranial nerve deficit or sensory deficit. Coordination and gait normal. GCS eye subscore is 4. GCS verbal subscore is 5. GCS motor subscore is 6. cerbellar tests wnl. ____ SKIN: Skin is warm and dry. She is not diaphoretic. ____ PSYCH: She has a normal mood and affect. Her behavior is normal. Judgment and thought content normal. ____ Medical Decision & Procedures ER Provider Diagnostic Interpretation: Radiology results as stated below per my review and radiologist interpretation: CHEST FOR PE) ANGIO WITH CLINICAL HISTORY: 77 years-old Female presenting with ^r/o PE, CHEST PAIN/TIGHTNESS. TECHNIQUE: Multidetector CT angiography of the chest was performed after administration of intravenous contrast. 3-D volumetric and/or maximum intensity projection (MIP) images were subsequently reconstructed for review. IV contrast: 71 mL of Optiray 320. A dose lowering technique was used consistent with the principles of ALARA (as low as reasonably achievable). COMPARISON: Chest x-ray performed earlier the same day. CT DOSE (mGy.cm): The estimated cumulative dose is 202.14 mGy.cm. 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 Pulmonary vasculature: The study is adequate for assessment of the pulmonary vascular tree. No filling defect within the pulmonary arteries to suggest embolus. Main pulmonary artery is not enlarged. No flattening of the interventricular septum. No intracardiac filling defect. Reflux of contrast into the intrahepatic IVC. Remaining chest: On soft tissue windows, multiple nodules in the thyroid the largest in the left lobe measuring 18 mm. No axillary, supraclavicular, hilar, or mediastinal lymphadenopathy. Atherosclerosis of the aorta. Tortuosity of the cervical branch vessels could suggest chronic hypertension. Normal heart size. No pericardial or pleural effusion. Well-defined hypodensity in the right hepatic lobe indeterminate but likely hepatic cyst or hamartoma. Gastric diverticulum noted along the fundus/posterior body. On lung windows, bandlike opacities at the lung bases likely atelectasis or scarring. 3 mm solid nodule in the right lower lobe in the azygos esophageal recess (series 4 image 106). Airways patent. On bone windows, degenerative changes of the spine. Mild osteopenia. Benign hemangioma noted in one of the vertebral bodies. IMPRESSION: 1. No evidence of pulmonary embolus. No acute intrathoracic pathology. 2. Solid 3 mm nodule in the right lower lobe. Follow-up per Shawn Society 2017 recommendations below. Please refer to below summary of Fleischner Society 2017 recommendations for follow-up of incidental CT nodules (Saul Stevens et al. Guidelines for management of incidental pulmonary nodules detected on CT images: From the Fleischner Society 2017. Radiology 2017; 284: 228-243.) SOLID NODULES Single nodule; size < 6 mm * Low risk patients: No routine follow-up * High risk patients: Optional CT at 12 months Single nodule; size 6-8 mm * Low risk patients: CT at 6-12 months, then consider CT at 18-24 months * High risk patients: CT at 6-12 months, then at 18-24 months Single nodule; size > 8 mm * Either low or high risk patients: Considered CT at 3 months, PET/CT, or tissue sampling Multiple nodules; size < 6 mm * Low risk patients: No routine follow up * High risk patients: Optional CT at 12 months Multiple nodules; size 6-8 mm * Low risk patients: CT at 3-6 months, then consider CT at 18-24 months * High risk patients: CT at 3-6 months, then at 18-24 months Multiple nodules; size > 8 mm * Low risk patients: CT at 3-6 months, then consider at 18-24 months * High risk patients: CT at 3-6 months, then at 18-24 months Note: These guidelines apply to incidental nodules. These guidelines do not apply to patients younger than 35 years, immunocompromised patients, or patients with cancer. * Low risk patients: Minimal or absent history of smoking and/or other known risk factors * High risk patients: History of smoking, exposure to other carcinogens, emphysema, fibrosis, upper lobe location, family history of lung cancer, etc. * If a nodule up to 8 mm is partly solid or is ground glass, further follow-up is required after 24 months to exclude possible slow growing adenocarcinoma. SUBSOLID NODULES Single ground-glass nodule * Nodule size < 6 mm: No routine follow-up * Nodule size > or = 6 mm: CT at 6-12 months to confirm persistence, then CT every 2 years until 5 years Single part-solid nodule * Nodule size < 6 mm: No routine follow-up * Nodules size > or = 6 mm: CT at 3-6 months to confirm persistence. If unchanged and solid component remains < 6 mm, annual CT should be performed for 5 years Multiple nodules * Nodule size < 6 mm: CT at 3-6 months. If stable, consider CT at 2 and 4 years. * Nodules size > or = 6 mm: CT at 3-6 months. Subsequent management based on the most suspicious nodule(s) Electronically signed by: Sea Dsouza M.D. 07/03/2017 1:25 PM Dictated Date/Time: 07/03/2017 1:16 PM CHEST 2 VIEWS ROUTINE CLINICAL HISTORY: 77 years-old Female presenting with cp . TECHNIQUE: PA and lateral views of the chest were obtained. COMPARISON: None. FINDINGS: Atherosclerosis of aortic arch. Cardiac silhouette mildly enlarged. Lungs and pleural spaces clear. Degenerative changes of the thoracic spine. Upper abdomen normal. IMPRESSION: 1. No acute cardiopulmonary disease. Electronically signed by: Sea Dsouza M.D. 07/03/2017 12:32 PM Dictated Date/Time: 07/03/2017 12:31 PM Laboratory Results 07/03/17 11:40 Red Blood Count 5.20, Mean Corpuscular Volume 87.9, Mean Corpuscular Hemoglobin 29.6, Mean Corpuscular Hemoglobin Concent 33.7, Mean Platelet Volume 9.9, Neutrophils (%) (Auto) 76.1, Lymphocytes (%) (Auto) 16.7, Monocytes (%) (Auto) 6.4, Eosinophils (%) (Auto) 0.2, Basophils (%) (Auto) 0.4, Neutrophils # (Auto) 3.69, Lymphocytes # (Auto) 0.81, Monocytes # (Auto) 0.31, Eosinophils # (Auto) 0.01, Basophils # (Auto) 0.02 07/03/17 11:40 Test 07/03/17 11:40 White Blood Count 4.85 K/uL (4.8-10.8) Red Blood Count 5.20 M/uL (4.2-5.4) Hemoglobin 15.4 g/dL (12.0-16.0) Hematocrit 45.7 % (37-47) Mean Corpuscular Volume 87.9 fL (80-100) Mean Corpuscular Hemoglobin 29.6 pg (25-34) Mean Corpuscular Hemoglobin Concent 33.7 g/dl (32-36) Platelet Count 149 K/uL (130-400) Mean Platelet Volume 9.9 fL (7.4-10.4) Neutrophils (%) (Auto) 76.1 % Lymphocytes (%) (Auto) 16.7 % Monocytes (%) (Auto) 6.4 % Eosinophils (%) (Auto) 0.2 % Basophils (%) (Auto) 0.4 % Neutrophils # (Auto) 3.69 K/uL (1.4-6.5) Lymphocytes # (Auto) 0.81 K/uL (1.2-3.4) Monocytes # (Auto) 0.31 K/uL (0.11-0.59) Eosinophils # (Auto) 0.01 K/uL (0-0.5) Basophils # (Auto) 0.02 K/uL (0-0.2) RDW Standard Deviation 47.9 fL (36.4-46.3) RDW Coefficient of Variation 15.0 % (11.5-14.5) Immature Granulocyte % (Auto) 0.2 % Immature Granulocyte # (Auto) 0.01 K/uL (0.00-0.02) Prothrombin Time 19.6 SECONDS (9.0-12.0) Prothromb Time International Ratio 1.9 (0.9-1.1) Activated Partial Thromboplast Time 38.3 SECONDS (21.0-31.0) Partial Thromboplastin Ratio 1.5 Anion Gap 6.0 mmol/L (3-11) Est Creatinine Clear Calc Drug Dose 37.8 ml/min Estimated GFR () 51.7 Estimated GFR (Non- 44.6 BUN/Creatinine Ratio 17.5 (10-20) Calcium Level 9.3 mg/dl (8.5-10.1) Troponin I < 0.015 ng/ml (0-0.045) Pro-B-Type Natriuretic Peptide 486 pg/ml (0-1800) Laboratory results reviewed by me Medications Administered Medications (Trade) Dose Ordered Sig/Narda Route Start Time Stop Time Status Last Admin Dose Admin Aspirin (Aspirin Chew) 324 mg NOW STAT PO 07/03/17 11:30 07/03/17 11:33 DC 07/03/17 11:46 324 MG Sodium Chloride 1,000 ml @ 999 mls/hr Q1H1M STAT IV 07/03/17 11:30 07/03/17 12:30 DC 07/03/17 11:46 999 MLS/HR Nitroglycerin (Nitrostat Tab) 0.4 mg Q5M PRN SL 07/03/17 11:30 08/02/17 11:29 07/03/17 12:03 0.4 MG Nitroglycerin (Nitroglycerin 2% Oint) 1 inch ONE STAT EXT 07/03/17 14:07 07/03/17 14:09 DC 07/03/17 14:24 1 INCH ECG Indication: chest pain (Heaviness) Rate (beats per minute): 77 Findings: no acute ischemic change, no ectopy, other (AL, QRS, QTc is wnl. No ST depression or elevation.) Change: Patient's electrocardiogram was interpreted by me. ED Course 1127: The patient was evaluated in room A09B. A complete history and physical exam was performed. 1130: Ordered Nitroglycerine .4mg SL, Sodium Chloride 1000 ml @ 999 mls/hr IV, Aspirin 324 mg PO 1207: I reevaluated the patient. Two sublingual nitroglycerine reduced her pain levels from 6/10 to 2/10. She will be given a 3rd nitroglycerin. 1221: I reevaluated the patient. Her Coumadin is subtherapeutic. Given her chest pain I will order a CTA chest 1405: CT of chest negative for PE. Troponin negative. Given that the patient had relief with nitroglycerin and she states that she has not had any ACS workup such as stress test the patient will be admitted to the hospitalist service. I discussed the patient's case with Dr. Thomas Valentino. He will evaluate the patient for further care and treatment. Patient began reporting chest pressure increasing to 2 out of 10 again ordered Nitroglycerine 2% ointment [address] Medical Decision [address] of chest negative for PE. Troponin negative. Given that the patient had relief with nitroglycerin and she states that she has not had any ACS workup such as stress test the patient will be admitted to the hospitalist service. I discussed the patient's case with Dr. Thomas Valentino. He will evaluate the patient for further care and treatment. Patient began reporting chest pressure increasing to 2 out of 10 again ordered Nitroglycerine 2% ointment 1 inch EXT. Medication Reconcilliation Current Medication List: was personally reviewed by me Blood Pressure Screening Patient's blood pressure: Elevated blood pressure Monitored by hospitalist. Consults Time Called: [id number] Consulting Physician: Dr. Thomas Valentino Returned Call: [phone] I discussed the patient's case with Dr. Thomas Valentino. He will evaluate the patient for further care and treatment. Impression Primary Impression: Chest pain Scribe Attestation The scribe's documentation has been prepared under my direction and personally reviewed by me in its entirety. I confirm that the note above accurately reflects all work, treatment, procedures, and medical decision making performed by me. The chart was completed utilizing [employer] Speech voice recognition software. Grammatical errors, random word insertions, pronoun errors, and incomplete sentences are an occasional consequence of this system due to software limitations, ambient noise, and hardware issues. Any formal questions or concerns about the content, text, or information contained within the body of this dictation should be directly addressed to the physician for clarification. Departure Information Dispostion Being Evaluated By Hospitalist Referrals Jazz Artis PA-C (PCP) Patient Instructions My [facility]
[2017-07-03 12:09] LABS: BASO % 0.4 %; BASO ABS # 0.02 K/uL (0-0.2); EOS % 0.2 %; EOS ABS # 0.01 K/uL (0-0.5); HEMATOCRIT 45.7 % (37-47); HEMOGLOBIN 15.4 g/dL (12.0-16.0); IG# 0.01 K/uL (0.00-0.02); LYMPH % 16.7 %; LYMPH ABS # 0.81 K/uL (1.2-3.4); MEAN CELL VOLUME 87.9 fL (80-100); MEAN CORPUSCULAR HEMOGLOBIN 29.6 pg (25-34); MEAN CORPUSCULAR HGB CONC 33.7 g/dl (32-36); MEAN PLATELET VOLUME 9.9 fL (7.4-10.4); MONO % 6.4 %; MONO ABS # 0.31 K/uL (0.11-0.59); NEUT % 76.1 %; NEUT ABS # 3.69 K/uL (1.4-6.5); PLATELET COUNT 149 K/uL (130-400); RED CELL DISTRIBUTION WIDTH SD 47.9 fL (36.4-46.3); WHITE BLOOD COUNT 4.85 K/uL (4.8-10.8)
[2017-07-03 12:17] LABS: INR 1.9 (0.9-1.1); PTT PATIENT 38.3 SECONDS (21.0-31.0)
[2017-07-03] MEDS ORDERED: OPTIRAY 320 IV PRN (12:30)
[2017-07-03 12:32] LABS: BLOOD UREA NITROGEN 21 mg/dl (7-18); CALCIUM 9.3 mg/dl (8.5-10.1); CARBON DIOXIDE 26 mmol/L (21-32); CREATININE 1.17 mg/dl (0.60-1.20); GLUCOSE 94 mg/dl (70-99); POTASSIUM 4.2 mmol/L (3.5-5.1); SODIUM 139 mmol/L (136-145)
--- NOTE | 2017-07-03 12:33 | DIAGNOSTIC IMAGING REPORT ---
CHEST 2 VIEWS ROUTINE CLINICAL HISTORY: 77 years-old Female presenting with cp . TECHNIQUE: PA and lateral views of the chest were obtained. COMPARISON: None. FINDINGS: Atherosclerosis of aortic arch. Cardiac silhouette mildly enlarged. Lungs and pleural spaces clear. Degenerative changes of the thoracic spine. Upper abdomen normal. IMPRESSION: 1. No acute cardiopulmonary disease. Electronically signed by: Sea Dsouza M.D. 07/03/2017 12:32 PM Dictated Date/Time: 07/03/2017 12:31 PM
[2017-07-03] MEDS ORDERED: LISI-729 PO (12:55)
--- NOTE | 2017-07-03 13:26 | DIAGNOSTIC IMAGING REPORT ---
(CHEST FOR PE) ANGIO WITH CLINICAL HISTORY: 77 years-old Female presenting with ^r/o PE, CHEST PAIN/TIGHTNESS. TECHNIQUE: Multidetector CT angiography of the chest was performed after administration of intravenous contrast. 3-D volumetric and/or maximum intensity projection (MIP) images were subsequently reconstructed for review. IV contrast: 71 mL of Optiray 320. A dose lowering technique was used consistent with the principles of ALARA (as low as reasonably achievable). COMPARISON: Chest x-ray performed earlier the same day. CT DOSE (mGy.cm): The estimated cumulative dose is 202.14 mGy.cm. 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 Pulmonary vasculature: The study is adequate for assessment of the pulmonary vascular tree. No filling defect within the pulmonary arteries to suggest embolus. Main pulmonary artery is not enlarged. No flattening of the interventricular septum. No intracardiac filling defect. Reflux of contrast into the intrahepatic IVC. Remaining chest: On soft tissue windows, multiple nodules in the thyroid the largest in the left lobe measuring 18 mm. No axillary, supraclavicular, hilar, or mediastinal lymphadenopathy. Atherosclerosis of the aorta. Tortuosity of the cervical branch vessels could suggest chronic hypertension. Normal heart size. No pericardial or pleural effusion. Well-defined hypodensity in the right hepatic lobe indeterminate but likely hepatic cyst or hamartoma. Gastric diverticulum noted along the fundus/posterior body. On lung windows, bandlike opacities at the lung bases likely atelectasis or scarring. 3 mm solid nodule in the right lower lobe in the azygos esophageal recess (series 4 image 106). Airways patent. On bone windows, degenerative changes of the spine. Mild osteopenia. Benign hemangioma noted in one of the vertebral bodies. IMPRESSION: 1. No evidence of pulmonary embolus. No acute intrathoracic pathology. 2. Solid 3 mm nodule in the right lower lobe. Follow-up per Shawn Society 2017 recommendations below. Please refer to below summary of Fleischner Society 2017 recommendations for follow-up of incidental CT nodules (Saul Stevens et al. Guidelines for management of incidental pulmonary nodules detected on CT images: From the Fleischner Society 2017. Radiology 2017; 284: 228-243.) SOLID NODULES Single nodule; size < 6 mm * Low risk patients: No routine follow-up * High risk patients: Optional CT at 12 months Single nodule; size 6-8 mm * Low risk patients: CT at 6-12 months, then consider CT at 18-24 months * High risk patients: CT at 6-12 months, then at 18-24 months Single nodule; size > 8 mm * Either low or high risk patients: Considered CT at 3 months, PET/CT, or tissue sampling Multiple nodules; size < 6 mm * Low risk patients: No routine follow up * High risk patients: Optional CT at 12 months Multiple nodules; size 6-8 mm * Low risk patients: CT at 3-6 months, then consider CT at 18-24 months * High risk patients: CT at 3-6 months, then at 18-24 months Multiple nodules; size > 8 mm * Low risk patients: CT at 3-6 months, then consider at 18-24 months * High risk patients: CT at 3-6 months, then at 18-24 months Note: These guidelines apply to incidental nodules. These guidelines do not apply to patients younger than 35 years, immunocompromised patients, or patients with cancer. * Low risk patients: Minimal or absent history of smoking and/or other known risk factors * High risk patients: History of smoking, exposure to other carcinogens, emphysema, fibrosis, upper lobe location, family history of lung cancer, etc. * If a nodule up to 8 mm is partly solid or is ground glass, further follow-up is required after 24 months to exclude possible slow growing adenocarcinoma. SUBSOLID NODULES Single ground-glass nodule * Nodule size < 6 mm: No routine follow-up * Nodule size > or = 6 mm: CT at 6-12 months to confirm persistence, then CT every 2 years until 5 years Single part-solid nodule * Nodule size < 6 mm: No routine follow-up * Nodules size > or = 6 mm: CT at 3-6 months to confirm persistence. If unchanged and solid component remains < 6 mm, annual CT should be performed for 5 years Multiple nodules * Nodule size < 6 mm: CT at 3-6 months. If stable, consider CT at 2 and 4 years. * Nodules size > or = 6 mm: CT at 3-6 months. Subsequent management based on the most suspicious nodule(s) Electronically signed by: Sea Dsouza M.D. 07/03/2017 1:25 PM Dictated Date/Time: 07/03/2017 1:16 PM
[2017-07-03] MEDS ORDERED: NITROGLYCERIN 2% OINTMENT 30GM TUBE EXT STA (14:07)
[2017-07-03] MEDS ORDERED: ACETAMINOPHEN 325 MG TAB PO PRN (14:30)
--- NOTE | 2017-07-03 16:10 | History and Physical ---
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 She presented to the ED and received three nitro SL tabs with improvement of the pain. Pain recurred to about 2/10 during my exam and nitro paste was placed. Patient denies fevers/chills. Minimal shortness of breath with the chest pain that has since improved. There were no EKG changes and no elevation of cardiac enzymes. CTA performed and ruled out PE. Past Medical/Surgical History Medical Problems: (1) CKD (chronic kidney disease) stage 3, GFR 30-59 ml/min Status: Chronic (2) Hypertension Status: Chronic Surgical Problems: (1) History of tubal ligation Status: Resolved Family History Diabetes mellitus FH: cancer FH: heart disease Hypertension Social History Smoking Status: Never Smoker Drug Use: none Allergies Coded Allergies: No Known Allergies (Unverified , 07/03/17) Home Medications Scheduled Cholecalciferol (Vitamin D3), 2,000 UNITS PO DAILY Diltiazem Hcl Ext Rel (Tiazac), 240 MG PO DAILY Lisinopril (Prinivil), 5 MG PO DAILY Warfarin Sod (Coumadin), 5 MG PO QD Review of Systems Constitutional: No fever, No chills, No weakness, No fatigue Respiratory: + shortness of breath, No cough, No sputum, No wheezing, No dyspnea on exertion, No dyspnea at rest, No hemoptysis Cardiovascular: + chest pain, No orthopnea, No edema, No palpitations Abdomen: No pain, No nausea, No vomiting, No diarrhea, No constipation Musculoskeletal: No joint pain, No muscle pain Genitourinary - Female: No dysuria, No urinary frequency, No urinary urgency, No urinary incontinence, No urinary retention, No hematuria Neurologic: No weakness, No numbness/tingling, No vertigo, No balance problems Psychiatric: No depression symptoms, No anxiety, No insomnia Endocrine: No fatigue Hematologic / Lymphatic: No abnormal bleeding/bruising Integumentary: No rash Allergic / Immunologic: No environmental allergies, No seasonal allergies Physical Exam Vital Signs Date Time Temp Pulse Resp B/P (MAP) Pulse Ox O2 Delivery O2 Flow Rate FiO2 07/03/17 15:18 60 14 95 07/03/17 15:01 159/78 07/03/17 14:48 60 10 93 07/03/17 14:31 170/87 07/03/17 14:23 146/81 07/03/17 14:23 66 18 146/81 95 07/03/17 14:18 57 14 93 07/03/17 13:48 51 11 95 07/03/17 12:48 57 13 96 07/03/17 12:27 137/72 07/03/17 12:27 66 18 137/72 96 07/03/17 12:18 69 13 97 07/03/17 12:09 127/95 07/03/17 12:09 81 18 127/95 96 07/03/17 12:02 78 18 130/77 97 07/03/17 12:02 130/77 07/03/17 12:01 77 07/03/17 11:53 141/91 07/03/17 11:53 81 18 141/91 97 07/03/17 11:49 99 Room Air 07/03/17 11:48 61 11 98 07/03/17 11:45 63 16 162/91 98 07/03/17 11:36 162/91 07/03/17 11:23 36.3 100 18 156/95 97 Room Air General Appearance: WD/WN, no apparent distress Head: normocephalic, atraumatic Eyes: normal inspection ENT: hearing grossly normal Neck: supple Respiratory/Chest: chest non-tender, lungs clear, normal breath sounds, no respiratory distress, no accessory muscle use Cardiovascular: regular rate, rhythm, no edema, no gallop, no JVD, no murmur, normal peripheral pulses Abdomen/GI: normal bowel sounds, non tender, soft Extremities/Musculoskelatal: normal inspection, no calf tenderness, normal capillary refill, no pedal edema, normal range of motion Neurologic/Psych: collar separator II-XII nml as tested, no motor/sensory deficits, alert, normal mood/affect, oriented x 3 Skin: normal color Lymphatic: no adenopathy Diagnostics Laboratory Results Results Past 24 Hours Test 07/03/17 11:40 Range/Units White Blood Count 4.85 4.8-10.8 K/uL Red Blood Count 5.20 4.2-5.4 M/uL Hemoglobin 15.4 12.0-16.0 g/dL Hematocrit 45.7 37-47 % Mean Corpuscular Volume 87.9 80-100 fL Mean Corpuscular Hemoglobin 29.6 25-34 pg Mean Corpuscular Hemoglobin Concent 33.7 32-36 g/dl Platelet Count 149 130-400 K/uL Mean Platelet Volume 9.9 7.4-10.4 fL Neutrophils (%) (Auto) 76.1 % Lymphocytes (%) (Auto) 16.7 % Monocytes (%) (Auto) 6.4 % Eosinophils (%) (Auto) 0.2 % Basophils (%) (Auto) 0.4 % Neutrophils # (Auto) 3.69 1.4-6.5 K/uL Lymphocytes # (Auto) 0.81 1.2-3.4 K/uL Monocytes # (Auto) 0.31 0.11-0.59 K/uL Eosinophils # (Auto) 0.01 0-0.5 K/uL Basophils # (Auto) 0.02 0-0.2 K/uL RDW Standard Deviation 47.9 36.4-46.3 fL RDW Coefficient of Variation 15.0 11.5-14.5 % Immature Granulocyte % (Auto) 0.2 % Immature Granulocyte # (Auto) 0.01 0.00-0.02 K/uL Prothrombin Time 19.6 9.0-12.0 SECONDS Prothromb Time International Ratio 1.9 0.9-1.1 Activated Partial Thromboplast Time 38.3 21.0-31.0 SECONDS Partial Thromboplastin Ratio 1.5 Sodium Level 139 136-145 mmol/L Potassium Level 4.2 3.5-5.1 mmol/L Chloride Level 107 98-107 mmol/L Carbon Dioxide Level 26 21-32 mmol/L Anion Gap 6.0 3-11 mmol/L Blood Urea Nitrogen 21 7-18 mg/dl Creatinine 1.17 0.60-1.20 mg/dl Est Creatinine Clear Calc Drug Dose 37.8 ml/min Estimated GFR () 51.7 Estimated GFR (Non- 44.6 BUN/Creatinine Ratio 17.5 10-20 Random Glucose 94 70-99 mg/dl Calcium Level 9.3 8.5-10.1 mg/dl Troponin I < 0.015 0-0.045 ng/ml Pro-B-Type Natriuretic Peptide 486 0-1800 pg/ml Diagnostic Radiology CHEST 2 VIEWS ROUTINE CLINICAL HISTORY: 77 years-old Female presenting with cp . TECHNIQUE: PA and lateral views of the chest were obtained. COMPARISON: None. FINDINGS: Atherosclerosis of aortic arch. Cardiac silhouette mildly enlarged. Lungs and pleural spaces clear. Degenerative changes of the thoracic spine. Upper abdomen normal. IMPRESSION: 1. No acute cardiopulmonary disease. (CHEST FOR PE) ANGIO WITH CLINICAL HISTORY: 77 years-old Female presenting with ^r/o PE, CHEST PAIN/TIGHTNESS. TECHNIQUE: Multidetector CT angiography of the chest was performed after administration of intravenous contrast. 3-D volumetric and/or maximum intensity projection (MIP) images were subsequently reconstructed for review. IV contrast: 71 mL of Optiray 320. A dose lowering technique was used consistent with the principles of ALARA (as low as reasonably achievable). COMPARISON: Chest x-ray performed earlier the same day. CT DOSE (mGy.cm): The estimated cumulative dose is 202.14 mGy.cm. FINDINGS: Laboratory Scientist topogram: Unremarkable. Pulmonary vasculature: The study is adequate for assessment of the pulmonary vascular tree. No filling defect within the pulmonary arteries to suggest embolus. Main pulmonary artery is not enlarged. No flattening of the interventricular septum. No intracardiac filling defect. Reflux of contrast into the intrahepatic IVC. Remaining chest: On soft tissue windows, multiple nodules in the thyroid the largest in the left lobe measuring 18 mm. No axillary, supraclavicular, hilar, or mediastinal lymphadenopathy. Atherosclerosis of the aorta. Tortuosity of the cervical branch vessels could suggest chronic hypertension. Normal heart size. No pericardial or pleural effusion. Well-defined hypodensity in the right hepatic lobe indeterminate but likely hepatic cyst or hamartoma. Gastric diverticulum noted along the fundus/posterior body. On lung windows, bandlike opacities at the lung bases likely atelectasis or scarring. 3 mm solid nodule in the right lower lobe in the azygos esophageal recess (series 4 image 106). Airways patent. On bone windows, degenerative changes of the spine. Mild osteopenia. Benign hemangioma noted in one of the vertebral bodies. IMPRESSION: 1. No evidence of pulmonary embolus. No acute intrathoracic pathology. 2. Solid 3 mm nodule in the right lower lobe. Follow-up per Shawn Society 2017 recommendations below. 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 of DVT on long-term anticoagulation continue Coumadin 5mg daily INR is 1.9 will add SQ Lovenox until INR is 2-3 CTA chest - no PE noted HTN recently changed Propranolol to Lisinopril continue Lisinopril and Diltiazem for blood pressure Nitro paste on for now CKD stage 3 creatinine at baseline avoid nephrotoxic agents when able DVT ppx Lovenox/Coumadin FULL CODE VTE Prophylaxis VTE Risk Assessment Done? Y/N: Yes Risk Level: Moderate
[2017-07-03] MEDS ORDERED: IV FLUIDS COMPLETED PRN (16:45)
[2017-07-03 17:25] VITALS: BP 160/84
[2017-07-03 17:28] VITALS: BP 181/94; PULSE 68; TEMP 36.4; O2SAT 92; Ht 162.6 cm; Wt 69.9 kg
[2017-07-03] MEDS: SODIUM CHLORIDE 0.9% 1000ML 1,000 ML IV SCH (17:29)
[2017-07-03] MEDS ORDERED: LISINOPRIL 5 MG TAB PO ONE (17:30)
[2017-07-03 17:40] VITALS: BP 160/85
[2017-07-03] MEDS: WARFARIN SOD 5 MG TAB PO SCH (17:48)
[2017-07-03] MEDS: ENOXAPARIN 40 MG/0.4 ML SYR SC SCH (19:56)
[2017-07-03 20:00] VITALS: BP 158/81; PULSE 71; TEMP 37.1; O2SAT 95
[2017-07-03 23:53] VITALS: BP 158/78; PULSE 78; TEMP 36.7; O2SAT 92
[2017-07-04] VITALS (8 sets, daily range): BP systolic 127–174; BP diastolic 74–91; PULSE 60–81; TEMP 36.5–37; O2SAT 92–96
[2017-07-04 02:28] LABS: HEMOGLOBIN 13.8 g/dL (12.0-16.0); MEAN CORPUSCULAR HEMOGLOBIN 29.6 pg (25-34); MEAN CORPUSCULAR HGB CONC 33.7 g/dl (32-36); MEAN PLATELET VOLUME 9.4 fL (7.4-10.4); PLATELET COUNT 136 K/uL (130-400); RED CELL DISTRIBUTION WIDTH CV 15.1 % (11.5-14.5); RED CELL DISTRIBUTION WIDTH SD 48.8 fL (36.4-46.3); WHITE BLOOD COUNT 4.63 K/uL (4.8-10.8)
[2017-07-04 02:37] LABS: INR 1.9 (0.9-1.1)
[2017-07-04 02:54] LABS: CALCIUM 8.5 mg/dl (8.5-10.1); CREATININE 1.12 mg/dl (0.60-1.20); POTASSIUM 3.9 mmol/L (3.5-5.1)
[2017-07-04] MEDS: SODIUM CHLORIDE 0.9% 1000ML 1,000 ML IV SCH ×2 (04:18→16:15)
[2017-07-04] MEDS ORDERED: GI COCKTAIL PO STA (09:00)
[2017-07-04] MEDS ORDERED: LISINOPRIL 5 MG TAB PO SCH (09:00)
[2017-07-04] MEDS ORDERED: PANTOprazole SOD 40 MG TAB PO ONE (09:04)
[2017-07-04] MEDS ORDERED: ALUMINUM/MAGNESIUM SUSP 18 ML, LIDOCAINE HCL 2% VISCOUS SOLN 6 ML, BARCODE IDENTIFIER 1 EA PO STA ×2 (09:05)
--- NOTE | 2017-07-04 09:16 | ECHOCARDIOGRAM REPORT ---
*NOTICE TO RECEIVING DEMOCRAT AGENCY This information is strictly Confidential and protected under [place] law. [place] law prohibits you from making any further disclosure of this information unless further disclosure is expressly permitted by the written consent of the person to whom it pertains or is authorized by law. A general authorization for the release of medical or other information is not sufficient for this purpose. Hospital accepts no responsibility if the information is made available to any other person, INCLUDING THE PATIENT. Interpretation Summary * Name: MARLENI BARRERA Study Date: 07/04/2017 06:31 AM BP: 146/81 mmHg * Patient Location: .2E\S\E210\S\1 HR: 66 * : 1940 (M/d/yyyy) Gender: Female Height: 64 in * Age: 77 yrs Ethnicity: [place] Weight: 152 lb * Ordering Physician: Ramon Guzman * Referring Physician: Self, Referred * Performed By: Diann Tomas RDCS * * Reason For Study: Chest pain * BSA: 1.7 m2 * The study was technically adequate. * There is no comparison study available. * -- Conclusions -- * Ejection Fraction = 60-65%. * The left ventricular wall motion is normal. * Grade I diastolic dysfunction, (abnormal relaxation pattern). * There is mild mitral regurgitation. Procedure Details * A complete two-dimensional transthoracic echocardiogram was performed (2D, M-mode, Doppler and color flow Doppler). Left Ventricle * The left ventricle is normal in size. * There is normal left ventricular wall thickness. * Ejection Fraction = 60-65%. * Left ventricular systolic function is normal. * The left ventricular wall motion is normal. Right Ventricle * The right ventricle is normal size. * The right ventricular systolic function is normal as assessed by tricuspid annular plane systolic excursion (TAPSE) (normal >1.5 cm). Atria * Borderline left atrial enlargement. * Right atrial size is normal. * There is no evidence of atrial septal defect, but resolution does not allow assessment for a patent foramen ovale. Mitral Valve * There is mild mitral annular calcification. * The mitral valve leaflets appear thickened, but open well. * There is no mitral valve stenosis. * There is mild mitral regurgitation. Tricuspid Valve * The tricuspid valve is normal. * There is no tricuspid stenosis. * Significant tricuspid regurgitation is absent. Aortic Valve * The aortic valve is trileaflet. * Aortic stenosis is absent. * There is no significant aortic regurgitation. Pulmonic Valve * The pulmonary valve is inadequately visualized, but the Doppler data is adequate for interpretation. * There is no pulmonic valvular stenosis. * Trace pulmonic valvular regurgitation. Great Vessels * The aortic root and proximal ascending aorta are normal sized. Pericardium/Pleural * There is no pericardial effusion. Great Vessels * Normal inferior vena cava diameter and respiratory variation suggests normal central venous pressure. Left Ventricular Diastolic Function * Grade I diastolic dysfunction, (abnormal relaxation pattern). MMode 2D Measurements and Calculations IVSd 0.71 cm LVIDd 4.6 cm LVIDs 3.0 cm LVPWd 0.68 cm IVS/LVPW 1.0 FS 33.5 % EDV(Teich) 95.6 ml ESV(Teich) 36.0 ml EF(Teich) 62.3 % EDV(cubed) 95.1 ml ESV(cubed) 28.0 ml EF(cubed) 70.6 % LV mass(C)d 97.1 grams LV mass(C)dI 55.8 grams/m\S\2 SV(Teich) 59.6 ml SI(Teich) 34.2 ml/m\S\2 SV(cubed) 67.1 ml SI(cubed) 38.6 ml/m\S\2 Ao root diam 2.8 cm Ao root area 6.1 cm\S\2 ACS 1.7 cm LA dimension 3.9 cm asc Aorta Diam 2.4 cm LA/Ao 1.4 LVOT diam 1.8 cm LVOT area 2.6 cm\S\2 LVAd ap4 24.5 cm\S\2 LVLd ap4 6.5 cm EDV(MOD-sp4) 74.8 ml EDV(sp4-el) 78.1 ml LVAs ap4 14.6 cm\S\2 LVLs ap4 6.1 cm ESV(MOD-sp4) 29.9 ml ESV(sp4-el) 29.9 ml EF(MOD-sp4) 60.1 % EF(sp4-el) 61.7 % LVAd ap2 21.0 cm\S\2 LVLd ap2 6.5 cm EDV(MOD-sp2) 56.3 ml EDV(sp2-el) 58.2 ml LVAs ap2 11.7 cm\S\2 LVLs ap2 5.1 cm ESV(MOD-sp2) 21.7 ml ESV(sp2-el) 22.9 ml EF(MOD-sp2) 61.4 % EF(sp2-el) 60.6 % LVLd %diff -0.91 % EDV(MOD-bp) 65.2 ml LVLs %diff -19.36 % ESV(MOD-bp) 27.7 ml EF(MOD-bp) 57.5 % SV(MOD-sp4) 45.0 ml SI(MOD-sp4) 25.8 ml/m\S\2 SV(MOD-sp2) 34.5 ml SI(MOD-sp2) 19.8 ml/m\S\2 SV(MOD-bp) 37.5 ml SI(MOD-bp) 21.5 ml/m\S\2 SV(sp4-el) 48.2 ml SI(sp4-el) 27.7 ml/m\S\2 SV(sp2-el) 35.3 ml SI(sp2-el) 20.3 ml/m\S\2 Doppler Measurements and Calculations MV E max clifford 65.5 cm/sec MV A max clifford 111.6 cm/sec MV E/A 0.59 MV dec time 0.31 sec Ao V2 max 149.3 cm/sec Ao max PG 8.9 mmHg Ao max PG (full) 6.6 mmHg LENNOX(V,A) 1.4 cm\S\2 LENNOX(V,D) 1.4 cm\S\2 LV V1 max PG 2.3 mmHg LV V1 max 76.6 cm/sec PA V2 max 90.9 cm/sec PA max PG 3.3 mmHg PA acc slope 486.7 cm/sec\S\2 PA acc time 0.11 sec PI end-d clifford 115.4 cm/sec PA pr(Accel) 31.5 mmHg
[2017-07-04] MEDS: NITROGLYCERIN 2% OINTMENT 30GM TUBE EXT SCH ×2 (09:19→15:00)
[2017-07-04] MEDS: DILTIAZEM HCL 120 MG EXT REL CAP PO SCH (09:19)
--- NOTE | 2017-07-04 11:02 | Progress Note ---
Internal Med Progress Note Date of Service: Jul 04, 2017. Provider Documentation: SUBJECTIVE: The patient was seen and examined Admitted with Chest pressure -woke up with the symptoms Relieved with Nitro Some chest pressure this AM while off the Nitropaste OBJECTIVE: Vital Signs-as noted below Exam: General-Minimal distress at rest Eyes-normal ENT-normal Neck-supple Lungs-clear to ausucltate bilaterally Heart-Regular,no murmur appreciated Abdomen-Benign,no masses,bowel sound present Extremities-No edema Neuro-AAOx3 Lab data as noted below. 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 of DVT on long-term anticoagulation continue Coumadin 5mg daily INR is 1.9 will add SQ Lovenox until INR is 2-3 CTA chest - no PE noted Continue Coumadin HTN recently changed Propranolol to Lisinopril continue Lisinopril and Diltiazem for blood pressure remains stable CKD stage 3 creatinine at baseline avoid nephrotoxic agents when able creatinine remains stable DVT ppx Lovenox/Coumadin FULL CODE Vital Signs: Date Time Temp Pulse Resp B/P (MAP) Pulse Ox O2 Delivery O2 Flow Rate FiO2 07/04/17 07:41 36.7 64 19 174/81 (112) 94 Room Air 07/04/17 04:00 Room Air 07/04/17 04:00 37.0 66 20 131/79 (96) 96 Room Air 07/03/17 23:59 Room Air 07/03/17 23:53 36.7 78 22 158/78 (104) 92 Room Air 07/03/17 20:00 37.1 71 22 158/81 (106) 95 Room Air 07/03/17 20:00 Room Air 07/03/17 17:40 160/85 (110) 07/03/17 17:28 36.4 68 20 181/94 92 Room Air 07/03/17 17:04 36.3 55 16 169/89 95 07/03/17 17:01 169/89 07/03/17 16:38 55 16 95 07/03/17 16:33 63 12 96 07/03/17 16:31 163/89 07/03/17 16:28 61 11 93 07/03/17 16:23 61 13 95 07/03/17 16:18 59 21 95 07/03/17 16:13 60 14 96 07/03/17 16:10 62 07/03/17 16:08 63 8 96 07/03/17 16:03 63 15 96 07/03/17 16:01 167/88 07/03/17 15:58 62 14 94 07/03/17 15:53 60 13 95 07/03/17 15:48 60 17 95 07/03/17 15:43 59 18 95 07/03/17 15:38 61 12 95 07/03/17 15:33 63 16 96 07/03/17 15:31 141/82 07/03/17 15:28 60 16 94 07/03/17 15:23 60 13 94 07/03/17 15:18 60 14 95 07/03/17 15:01 159/78 07/03/17 14:48 60 10 93 07/03/17 14:31 170/87 07/03/17 14:23 146/81 07/03/17 14:23 66 18 146/81 95 07/03/17 14:18 57 14 93 07/03/17 13:48 51 11 95 07/03/17 12:48 57 13 96 07/03/17 12:27 137/72 07/03/17 12:27 66 18 137/72 96 07/03/17 12:18 69 13 97 07/03/17 12:09 127/95 07/03/17 12:09 81 18 127/95 96 07/03/17 12:02 78 18 130/77 97 07/03/17 12:02 130/77 07/03/17 12:01 77 07/03/17 11:53 141/91 07/03/17 11:53 81 18 141/91 97 07/03/17 11:49 99 Room Air 07/03/17 11:48 61 11 98 07/03/17 11:45 63 16 162/91 98 07/03/17 11:36 162/91 07/03/17 11:23 36.3 100 18 156/95 97 Room Air Lab Results: Results Past 24 Hours Test 07/03/17 11:40 07/03/17 20:24 07/04/17 02:15 07/04/17 09:28 Range/Units White Blood Count 4.85 4.63 4.8-10.8 K/uL Red Blood Count 5.20 4.66 4.2-5.4 M/uL Hemoglobin 15.4 13.8 12.0-16.0 g/dL Hematocrit 45.7 41.0 37-47 % Mean Corpuscular Volume 87.9 88.0 80-100 fL Mean Corpuscular Hemoglobin 29.6 29.6 25-34 pg Mean Corpuscular Hemoglobin Concent 33.7 33.7 32-36 g/dl Platelet Count 149 136 130-400 K/uL Mean Platelet Volume 9.9 9.4 7.4-10.4 fL Neutrophils (%) (Auto) 76.1 % Lymphocytes (%) (Auto) 16.7 % Monocytes (%) (Auto) 6.4 % Eosinophils (%) (Auto) 0.2 % Basophils (%) (Auto) 0.4 % Neutrophils # (Auto) 3.69 1.4-6.5 K/uL Lymphocytes # (Auto) 0.81 1.2-3.4 K/uL Monocytes # (Auto) 0.31 0.11-0.59 K/uL Eosinophils # (Auto) 0.01 0-0.5 K/uL Basophils # (Auto) 0.02 0-0.2 K/uL RDW Standard Deviation 47.9 48.8 36.4-46.3 fL RDW Coefficient of Variation 15.0 15.1 11.5-14.5 % Immature Granulocyte % (Auto) 0.2 % Immature Granulocyte # (Auto) 0.01 0.00-0.02 K/uL Prothrombin Time 19.6 19.8 9.0-12.0 SECONDS Prothromb Time International Ratio 1.9 1.9 0.9-1.1 Activated Partial Thromboplast Time 38.3 21.0-31.0 SECONDS Partial Thromboplastin Ratio 1.5 Sodium Level 139 141 136-145 mmol/L Potassium Level 4.2 3.9 3.5-5.1 mmol/L Chloride Level 107 111 98-107 mmol/L Carbon Dioxide Level 26 24 21-32 mmol/L Anion Gap 6.0 6.0 3-11 mmol/L Blood Urea Nitrogen 21 20 7-18 mg/dl Creatinine 1.17 1.12 0.60-1.20 mg/dl Est Creatinine Clear Calc Drug Dose 37.8 39.8 ml/min Estimated GFR () 51.7 54.5 Estimated GFR (Non- 44.6 47.0 BUN/Creatinine Ratio 17.5 17.9 10-20 Random Glucose 94 85 70-99 mg/dl Calcium Level 9.3 8.5 8.5-10.1 mg/dl Troponin I < 0.015 < 0.015 < 0.015 < 0.015 0-0.045 ng/ml Pro-B-Type Natriuretic Peptide 486 0-1800 pg/ml
--- NOTE | 2017-07-04 11:37 | CARDIOLOGY CONSULTATION ---
DATE OF CONSULTATION: 07/04/2017 CHIEF COMPLAINT ON ADMISSION: Chest pressure. HISTORY OF PRESENT ILLNESS: Ms. Larson is a 77-year-old female with a history of unprovoked DVT and MTHFR mutation on long-term anticoagulation, hypertension, and CKD stage III. She presented to the Emergency Department with an epigastric and lower chest tightness that began in the morning, Wednesday prior to eating breakfast. The discomfort waxed and waned throughout the day. She then went to sleep and awoke in the middle of the night with recurrent pressure. In the ER, patient was given sublingual nitroglycerin. Pain reduced to 2/10. Overnight, she had mild episodes of tightness. This morning, her tightness has recurred as well. ECG demonstrates no ST changes. Resting 2D transthoracic echo without regional wall motion abnormality. Cardiac enzymes are negative x2 sets. The patient appears comfortable. Discomfort is not altered with inspiration, position, or activity. Denies associated palpitations, lightheadedness, dizziness, syncope or near syncope. Denies orthopnea or PND. No recent fever, chills, nausea, vomiting, diarrhea, or sick contacts. Recent medication change significant for discontinuation of propranolol in May. This medication was weaned off by nephrology. REVIEW OF SYSTEMS: The pertinent positive noted above, a comprehensive 10-system review is otherwise negative. PAST MEDICAL HISTORY: 1. Chronic kidney disease stage III. 2. Hypertension. 3. MTHFR mutation. 4. Heterozygous factor V Leiden mutation. 5. Unprovoked DVT. PAST SURGICAL HISTORY: Tubal ligation. FAMILY HISTORY: Negative for premature CAD or sudden cardiac . SOCIAL HISTORY: Lifelong nonsmoker. Denies alcohol or illicit drug use. ALLERGIES: No known drug allergies. HOME MEDICATIONS: 1. Cholecalciferol 2000 units daily. 2. Diltiazem 240 mg. 3. Lisinopril 5 mg daily. 4. Coumadin 5 mg daily. LABORATORY AND DIAGNOSTIC DATA: ECG ON ADMISSION: Normal sinus rhythm, left anterior fascicular block. Repeat ECG at 7:20 this morning is in sinus bradycardia with left anterior fascicular block and no ischemic ST changes. 2D transthoracic echo demonstrates normal systolic function, mild mitral regurgitation, no regional wall motion abnormalities. ProBNP is 486. Troponin is negative at 11:40 a.m. as well as 2:00 a.m. INR is 1.9. White blood cell count 4.63, hemoglobin is 13.8, platelet count is 136. CT angiogram of the chest negative for pulmonary embolus, pulmonary nodules noted in the right lower lobe. PHYSICAL EXAMINATION: VITAL SIGNS: Temperature 36.7 degrees centigrade, pulse 64 beats per minute and regular, respiratory rate is 19 breaths per minute, blood pressure 174/81. SaO2 is 94% on room air. GENERAL: NAD, awake, alert and oriented x3. HEENT: Her mucous membranes are moist. No scleral icterus. Conjunctivae pink. NECK: Supple without JVD or HJR. No carotid bruit. HEART: Regular with a normal S1 and S2. There is no murmur, rub, or gallop. LUNGS: Clear without rales, rhonchi or wheeze. ABDOMEN: Soft. There is reproducible epigastric tenderness with palpation. There is also tenderness with palpation of the subxiphoid region. There is no rebound or guarding. Normal bowel sounds. EXTREMITIES: Warm and dry without clubbing, cyanosis, or edema. NEUROLOGIC: Demonstrates no focal deficit. FINAL IMPRESSION: 1. A 77-year-old female who presents with chest discomfort. Discomfort with atypical features occurring at rest, somewhat reproducible on exam without associated symptoms. Initial evaluation for acute coronary syndrome unremarkable including normal ECG, normal 2D echocardiogram, and negative cardiac enzymes. 2. Hypertension -- uncontrolled, improved with topical nitrates. 3. History of unprovoked deep venous thrombosis with heterozygous for factor V Leiden mutation as well as chart history of MTHFR mutation. The patient chronically anticoagulated with subtherapeutic INR noted on admission. PLAN AND RECOMMENDATIONS: Repeat cardiac enzymes are pending this a.m. With duration of discomfort, negative ECG, normal echocardiogram, undetectable cardiac enzymes, etiology of discomfort less likely cardiac. I have ordered a GI cocktail consisting of viscous lidocaine and Maalox. I have also ordered a proton pump inhibitor. Consider dobutamine stress echocardiography for further risk stratification. We will continue to monitor telemetry during hospitalization as well as blood pressure. The patient may require a titration of lisinopril to improve blood pressure control. We will continue to follow closely during hospitalization. Thank you for allowing me to participate in the care of your patient.
[2017-07-04] MEDS ORDERED: NURSING VERBAL MED ORDER ONE (15:30)
[2017-07-04] MEDS: NITROGLYCERIN 0.4 MG SL PER TAB CHARGE SL PRN ×2 (15:55→16:16)
[2017-07-04] MEDS: WARFARIN SOD 5 MG TAB PO SCH (16:15)
[2017-07-04] MEDS ORDERED: MoRPHine SULFATE 2 MG/ML CARP IV PRN (16:30)
[2017-07-04] MEDS: ENOXAPARIN 40 MG/0.4 ML SYR SC SCH (19:49)
[2017-07-04] MEDS: LISINOPRIL 5 MG TAB PO SCH (19:49)
[2017-07-05 03:43] VITALS: BP 152/70; PULSE 68; TEMP 36.9; O2SAT 93
[2017-07-05 08:15] VITALS: BP 163/72; PULSE 66; TEMP 36.8; O2SAT 94
[2017-07-05] MEDS ORDERED: PERFLUTREN LIPID MICROSPHERE (DEFINITY) IV ONE (08:43)
[2017-07-05] MEDS ORDERED: PANTOprazole SOD 40 MG TAB PO SCH (09:00)
--- NOTE | 2017-07-05 09:26 | PROGRESS NOTE ---
DATE: 07/05/2017 SUBJECTIVE: The patient seen and examined at the bedside. Denies recurrent chest tightness or shortness of breath. She received "GI cocktail" consisting of lidocaine and Maalox yesterday. This immediately resolved her chest pressure. Her nitro paste was removed. Ambulating in the room without difficulty. Exercise stress echo negative for inducible ischemia at adequate heart rate. Her exercise tolerance is below average. Cardiac enzymes undetectable. Offers no other complaints currently. REVIEW OF SYSTEMS: Pertinent positives noted above. A 4-system review including cardiovascular, pulmonary, gastrocolic, and neurologic systems otherwise negative. MEDICATIONS: Reviewed the EMR. Please see list for details. LABORATORY DATA: Pending this a.m. A.m. INR is pending as well. PHYSICAL EXAMINATION: VITAL SIGNS: Temperature 36.8 degrees centigrade, pulse 66 beats per minute and regular, respiratory rate is 18 breaths per minute, blood pressure 163/72, SaO2 94% on room air. GENERAL: NAD, awake, alert and oriented x3. HEENT: Mucous membranes moist. No scleral icterus. Conjunctivae pink. NECK: Supple without JVD or HJR. No carotid bruit. HEART: Regular with a normal S1 and S2. No murmur, rub or gallop. LUNGS: Clear without rales, rhonchi or wheeze. ABDOMEN: Soft, nontender. No rebound or guarding. EXTREMITIES: Warm and dry with no clubbing, cyanosis or edema. NEUROLOGIC: Demonstrates no focal deficit. FINAL IMPRESSION: 1. A 77-year-old female admitted with atypical chest pressure occurring at rest. No evidence of acute coronary syndrome. Exercise stress echo negative for inducible ischemia. Suspect gastrointestinal etiology given relief of discomfort with GI cocktail and proton pump inhibitor. 2. Hypertension -- labile. 3. History of unprovoked deep venous thrombosis. PLAN AND RECOMMENDATIONS: Recommend patient continue proton pump inhibitor, follow up with her primary care physician regarding possible EGD in gastroenterology consultation. Continue lisinopril at 5 mg twice daily, which is an increase from her previous dose of 5 mg daily. Follow up with the anticoagulation clinic to maintain INR of 2.0-3.0. No further inpatient cardiac testing at this time. Thank you for allowing me to participate in the care of your patient.
[2017-07-05 10:26] LABS: INR 1.7 (0.9-1.1)
[2017-07-05 10:36] LABS: CALCIUM 8.2 mg/dl (8.5-10.1); CREATININE 1.17 mg/dl (0.60-1.20); POTASSIUM 3.7 mmol/L (3.5-5.1)
--- NOTE | 2017-07-05 10:39 | Progress Note ---
Internal Med Progress Note Date of Service: Jul 05, 2017. Provider Documentation: SUBJECTIVE: The patient was seen and examined Admitted with Chest pressure -woke up with the symptoms Relieved with Nitro Some chest pressure this AM while off the Nitropaste No more pain S/P Negative exercise stress ECHO OBJECTIVE: Vital Signs-as noted below Exam: General-No distress at ret Ambulating well without any difficulty Eyes-normal ENT-normal Neck-supple Lungs-clear to ausucltate bilaterally Heart-Regular,no murmur appreciated Abdomen-Benign,no masses,bowel sound present Extremities-No edema Neuro-AAOx3 Lab data as noted below. ASSESSMENT & PLAN: This is a 77 year old female with a PMH of Factor V Leiden mutation, hx. of DVT on long-term anticoagulation, HTN, CKD stage 3 - presents with substernal chest pain Atypical Chest Pain r/o ACS patient presented with substernal chest pain improved with nitro SL tabs initial and cardiac enzyme negative initial EKG with no ST;T wave changes and repeat No change as well no arrhythmia in Tele has had more chest pressure this AM-Nitropaste reapplied Appreciate Cardiology input ECHO-done -report pending Likely stress test in AM Negative Exercise Stress ECHO Discharge home today Factor V Leiden Mutation Hx. of DVT on long-term anticoagulation continue Coumadin 5mg daily INR is 1.9 will add SQ Lovenox until INR is 2-3 CTA chest - no PE noted Continue Coumadin INR 1.7 today HTN recently changed Propranolol to Lisinopril continue Lisinopril and Diltiazem for blood pressure remains stable CKD stage 3 creatinine at baseline avoid nephrotoxic agents when able creatinine remains stable DVT ppx Lovenox/Coumadin FULL CODE Discharge home today Discussed with the Daughter Vital Signs: Date Time Temp Pulse Resp B/P (MAP) Pulse Ox O2 Delivery O2 Flow Rate FiO2 07/05/17 08:15 36.8 66 18 163/72 (102) 94 Room Air 07/05/17 04:00 Room Air 07/05/17 03:43 36.9 68 18 152/70 (97) 93 Room Air 07/04/17 23:59 Room Air 07/04/17 23:40 36.8 60 18 127/74 (91) 93 Room Air 07/04/17 20:00 Room Air 07/04/17 19:46 36.5 62 22 151/80 (103) 92 Room Air 07/04/17 16:00 Room Air 07/04/17 15:45 36.7 69 20 129/85 (100) 95 Room Air 07/04/17 12:05 Room Air 07/04/17 12:02 37.0 74 18 140/82 (101) 92 Room Air Lab Results: Results Past 24 Hours Test 07/04/17 14:24 07/05/17 09:43 Range/Units Troponin I < 0.015 0-0.045 ng/ml Prothrombin Time 17.8 9.0-12.0 SECONDS Prothromb Time International Ratio 1.7 0.9-1.1
[2017-07-05 11:56] VITALS: BP 163/86; PULSE 68; TEMP 36.4; O2SAT 95
[2017-07-05] MEDS ORDERED: PRT40 PO (13:58)
--- NOTE | 2017-07-05 14:04 | Discharge Instructions ---
Discharge Instructions Date of Service Jul 05, 2017. Admission Reason for Admission: Chest Pain Discharge Discharge Diagnosis / Problem: Atypical Chest pain-Negative Stress ECHO, GERD Discharge Goals Goal(s): Prevent Disease Progression Activity Recommendations Activity Limitations: resume your previous activity . Instructions / Follow-Up Instructions / Follow-Up Appointment with your PCP on 07/07/17 at 2:25 at [facility].Coag clinic notified Current Hospital Diet Patient's current hospital diet: AHA Diet (Heart Healthy) Discharge Diet Recommended Diet: AHA Diet (Heart Healthy) Pending Studies Studies pending at discharge: no Medical Emergencies . Who to Call and When: Medical Emergencies: If at any time you feel your situation is an emergency, please call 911 immediately. . Non-Emergent Contact Non-Emergency issues call your: Primary Care Provider . Past History Medical & Surgical History: (1) Chest pain (2) Hypertension (3) DVT (deep venous thrombosis) (4) CKD (chronic kidney disease) stage 3, GFR 30-59 ml/min (5) History of tubal ligation . "Provider Documentation" section prepared by Heath Choi. . VTE Core Measure Inpt VTE Proph given/why not?: Warfarin (Coumadin)
[2017-07-05] MEDS: LISINOPRIL 5 MG TAB PO SCH (15:15)
[2017-07-05] MEDS: DILTIAZEM HCL 120 MG EXT REL CAP PO SCH (15:16)
[2017-07-05 15:24] VITALS: BP 163/86; PULSE 68; TEMP 36.4; O2SAT 95
[2017-07-05] MEDS: WARFARIN SOD 5 MG TAB PO SCH (15:35)
--- NOTE | 2017-07-05 17:22 | EXERCISE STRESS ECHO ---
*NOTICE TO RECEIVING [employer] This information is strictly Confidential and protected under [place] law. [place] law prohibits you from making any further disclosure of this information unless further disclosure is expressly permitted by the written consent of the person to whom it pertains or is authorized by law. A general authorization for the release of medical or other information is not sufficient for this purpose. Hospital accepts no responsibility if the information is made available to any other person, INCLUDING THE PATIENT. Interpretation Summary * Name: MARLENI BARRERA Study Date: 07/05/2017 08:21 AM BP: 142/86 mmHg * Patient Location: .2E\S\E210\S\1 HR: 97 * : 1940 (M/d/yyyy) Gender: Female Height: 64 in * Age: 77 yrs Ethnicity: [place] Weight: 153 lb * Ordering Physician: Pramod Shrestha * Referring Physician: Self, Referred * Performed By: Steph Duvall RDCS * * Reason For Study: Chest Pain * BSA: 1.7 m2 * The stress echocardiogram is negative for inducible ischemia. * Exercise capacity is below average. Procedure Details * ECHOEX, CPT #72549 * Contrast was injected into an intravenous site in the right arm. * One vial of Definity ultrasound contrast was diluted in normal saline to a total volume of 10 ml. A total of '4' ml of solution was administered during imaging. * Lot # [id number] of Definity utilized for procedure. * Expiration date . * The attending nurse who injected the contrast agent was Kim Azevedo RN. Left Ventricle * The left ventricular ejection fraction increases normally with stress. The left ventricular end-systolic cavity size reduces post-stress (normal response). The left ventricular wall motion with stress is normal. * Resting wall motion: Normal. Stress wall motion: Appropriate increase in Left ventricular systolic function and decrease in cavity size. No stress induced segmental wall motion abnormalities. Stress Parameters * The baseline ECG displays normal sinus rhythm. * Stress ECG: No ST changes. No arrhythmias. * PVC's recorded during recovery phase. * The stress portion of this study was personally supervised by the undersigned interpreting physician. * Rest heart rate was '97' BPM. * Rest blood pressure was '142/86' * Maximum heart rate achieved was 137 bpm. * Maximum heart rate was 96 % of maximum age-predicted heart rate. * Maximum blood pressure was '195/75' * Total exercise time was '2:25' * Maximum exercise MET level achieved was '4.60' METS * Maximum treadmill speed was '1.70' miles per hour. * Maximum treadmill elevation was '10.00'% grade. * Exercise was stopped due to lower extremity fatigue and difficulty maintaining pace on treadmill. Target heart rate achieved. No chest discomfort reported during exercise. * Normal blood pressure response to exercise.
--- NOTE | 2017-07-06 07:55 | Discharge Summary ---
Discharge Summary Date of Service Jul 06, 2017. Discharge Summary Admission Date: Jul 03, 2017 at 14:34 Discharge Date: Jul 05, 2017 Discharge Disposition: Home Principal Diagnosis: Atypical Chest pain-Negative Stress ECHO, GERD Secondary Diagnoses/Problems: Please see H&P and Hospital Progress note Consultations: Cardiology Medication Reconciliation New Medications: Pantoprazole (Pantoprazole Sodium) 40 Mg Tab 40 MG PO QAM for 30 Days, #30 TAB Continued Medications: Cholecalciferol (Vitamin D3) 1,000 Unit Tab 2000 UNITS PO DAILY for 30 Days, TAB 5 Refills Diltiazem Hcl Ext Rel (Tiazac) 240 Mg Capcr 240 MG PO DAILY, CAP Lisinopril (Prinivil) 5 Mg Tab 5 MG PO BID, TAB Warfarin Sod (Coumadin) 5 Mg Tab 5 MG PO QD, #10 Admission Information HPI (per Admitting provider): This is a 77 year old female with a PMH of Factor V Leiden mutation, hx. of DVT on long-term anticoagulation, HTN, CKD stage 3 - presents with substernal chest pain that woke her up from sleep; states that the pain began at 2AM on the day of arrival and persisted throughout the night at about 6/10 with no radiation of the pain. She presented to the ED and received three nitro SL tabs with improvement of the pain. Pain recurred to about 2/10 during my exam and nitro paste was placed. Patient denies fevers/chills. Minimal shortness of breath with the chest pain that has since improved. There were no EKG changes and no elevation of cardiac enzymes. CTA performed and ruled out PE. Past Medical/Surgical History Medical Problems: (1) CKD (chronic kidney disease) stage 3, GFR 30-59 ml/min Status: Chronic (2) Hypertension Status: Chronic Surgical Problems: (1) History of tubal ligation Status: Resolved Family History Diabetes mellitus FH: cancer FH: heart disease Hypertension Social History Smoking Status: Never Smoker Drug Use: none Allergies Coded Allergies: No Known Allergies (Unverified , 07/03/17) Home Medications Scheduled Cholecalciferol (Vitamin D3), 2,000 UNITS PO DAILY Diltiazem Hcl Ext Rel (Tiazac), 240 MG PO DAILY Lisinopril (Prinivil), 5 MG PO DAILY Warfarin Sod (Coumadin), 5 MG PO QD Review of Systems Constitutional: No fever, No chills, No weakness, No fatigue Respiratory: + shortness of breath, No cough, No sputum, No wheezing, No dyspnea on exertion, No dyspnea at rest, No hemoptysis Cardiovascular: + chest pain, No orthopnea, No edema, No palpitations Abdomen: No pain, No nausea, No vomiting, No diarrhea, No constipation Musculoskeletal: No joint pain, No muscle pain Genitourinary - Female: No dysuria, No urinary frequency, No urinary urgency, No urinary incontinence, No urinary retention, No hematuria Neurologic: No weakness, No numbness/tingling, No vertigo, No balance problems Psychiatric: No depression symptoms, No anxiety, No insomnia Endocrine: No fatigue Hematologic / Lymphatic: No abnormal bleeding/bruising Integumentary: No rash Allergic / Immunologic: No environmental allergies, No seasonal allergies Physical Ex - H&P Physical Exam Vital Signs Date Time Temp Pulse Resp B/P (MAP) Pulse Ox O2 Delivery O2 Flow Rate FiO2 07/03/17 15:18 60 14 95 07/03/17 15:01 159/78 07/03/17 14:48 60 10 93 07/03/17 14:31 170/87 07/03/17 14:23 146/81 07/03/17 14:23 66 18 146/81 95 07/03/17 14:18 57 14 93 07/03/17 13:48 51 11 95 07/03/17 12:48 57 13 96 07/03/17 12:27 137/72 07/03/17 12:27 66 18 137/72 96 07/03/17 12:18 69 13 97 07/03/17 12:09 127/95 07/03/17 12:09 81 18 127/95 96 07/03/17 12:02 78 18 130/77 97 07/03/17 12:02 130/77 07/03/17 12:01 77 07/03/17 11:53 141/91 07/03/17 11:53 81 18 141/91 97 07/03/17 11:49 99 Room Air 07/03/17 11:48 61 11 98 07/03/17 11:45 63 16 162/91 98 07/03/17 11:36 162/91 07/03/17 11:23 36.3 100 18 156/95 97 Room Air General Appearance: WD/WN, no apparent distress Head: normocephalic, atraumatic Eyes: normal inspection ENT: hearing grossly normal Neck: supple Respiratory/Chest: chest non-tender, lungs clear, normal breath sounds, no respiratory distress, no accessory muscle use Cardiovascular: regular rate, rhythm, no edema, no gallop, no JVD, no murmur, normal peripheral pulses Abdomen/GI: normal bowel sounds, non tender, soft Extremities/Musculoskelatal: normal inspection, no calf tenderness, normal capillary refill, no pedal edema, normal range of motion Neurologic/Psych: sitecore developer II-XII nml as tested, no motor/sensory deficits, alert, normal mood/affect, oriented x 3 Skin: normal color Lymphatic: no adenopathy Diagnostics - H&P Diagnostics Laboratory Results Results Past 24 Hours Test 07/03/17 11:40 Range/Units White Blood Count 4.85 4.8-10.8 K/uL Red Blood Count 5.20 4.2-5.4 M/uL Hemoglobin 15.4 12.0-16.0 g/dL Hematocrit 45.7 37-47 % Mean Corpuscular Volume 87.9 80-100 fL Mean Corpuscular Hemoglobin 29.6 25-34 pg Mean Corpuscular Hemoglobin Concent 33.7 32-36 g/dl Platelet Count 149 130-400 K/uL Mean Platelet Volume 9.9 7.4-10.4 fL Neutrophils (%) (Auto) 76.1 % Lymphocytes (%) (Auto) 16.7 % Monocytes (%) (Auto) 6.4 % Eosinophils (%) (Auto) 0.2 % Basophils (%) (Auto) 0.4 % Neutrophils # (Auto) 3.69 1.4-6.5 K/uL Lymphocytes # (Auto) 0.81 1.2-3.4 K/uL Monocytes # (Auto) 0.31 0.11-0.59 K/uL Eosinophils # (Auto) 0.01 0-0.5 K/uL Basophils # (Auto) 0.02 0-0.2 K/uL RDW Standard Deviation 47.9 36.4-46.3 fL RDW Coefficient of Variation 15.0 11.5-14.5 % Immature Granulocyte % (Auto) 0.2 % Immature Granulocyte # (Auto) 0.01 0.00-0.02 K/uL Prothrombin Time 19.6 9.0-12.0 SECONDS Prothromb Time International Ratio 1.9 0.9-1.1 Activated Partial Thromboplast Time 38.3 21.0-31.0 SECONDS Partial Thromboplastin Ratio 1.5 Sodium Level 139 136-145 mmol/L Potassium Level 4.2 3.5-5.1 mmol/L Chloride Level 107 98-107 mmol/L Carbon Dioxide Level 26 21-32 mmol/L Anion Gap 6.0 3-11 mmol/L Blood Urea Nitrogen 21 7-18 mg/dl Creatinine 1.17 0.60-1.20 mg/dl Est Creatinine Clear Calc Drug Dose 37.8 ml/min Estimated GFR () 51.7 Estimated GFR (Non- 44.6 BUN/Creatinine Ratio 17.5 10-20 Random Glucose 94 70-99 mg/dl Calcium Level 9.3 8.5-10.1 mg/dl Troponin I < 0.015 0-0.045 ng/ml Pro-B-Type Natriuretic Peptide 486 0-1800 pg/ml Diagnostic Radiology CHEST 2 VIEWS ROUTINE CLINICAL HISTORY: 77 years-old Female presenting with cp . TECHNIQUE: PA and lateral views of the chest were obtained. COMPARISON: None. FINDINGS: Atherosclerosis of aortic arch. Cardiac silhouette mildly enlarged. Lungs and pleural spaces clear. Degenerative changes of the thoracic spine. Upper abdomen normal. IMPRESSION: 1. No acute cardiopulmonary disease. (CHEST FOR PE) ANGIO WITH CLINICAL HISTORY: 77 years-old Female presenting with ^r/o PE, CHEST PAIN/TIGHTNESS. TECHNIQUE: Multidetector CT angiography of the chest was performed after administration of intravenous contrast. 3-D volumetric and/or maximum intensity projection (MIP) images were subsequently reconstructed for review. IV contrast: 71 mL of Optiray 320. A dose lowering technique was used consistent with the principles of ALARA (as low as reasonably achievable). COMPARISON: Chest x-ray performed earlier the same day. CT DOSE (mGy.cm): The estimated cumulative dose is 202.14 mGy.cm. FINDINGS: Jukebox Checker topogram: Unremarkable. Pulmonary vasculature: The study is adequate for assessment of the pulmonary vascular tree. No filling defect within the pulmonary arteries to suggest embolus. Main pulmonary artery is not enlarged. No flattening of the interventricular septum. No intracardiac filling defect. Reflux of contrast into the intrahepatic IVC. Remaining chest: On soft tissue windows, multiple nodules in the thyroid the largest in the left lobe measuring 18 mm. No axillary, supraclavicular, hilar, or mediastinal lymphadenopathy. Atherosclerosis of the aorta. Tortuosity of the cervical branch vessels could suggest chronic hypertension. Normal heart size. No pericardial or pleural effusion. Well-defined hypodensity in the right hepatic lobe indeterminate but likely hepatic cyst or hamartoma. Gastric diverticulum noted along the fundus/posterior body. On lung windows, bandlike opacities at the lung bases likely atelectasis or scarring. 3 mm solid nodule in the right lower lobe in the azygos esophageal recess (series 4 image 106). Airways patent. On bone windows, degenerative changes of the spine. Mild osteopenia. Benign hemangioma noted in one of the vertebral bodies. IMPRESSION: 1. No evidence of pulmonary embolus. No acute intrathoracic pathology. 2. Solid 3 mm nodule in the right lower lobe. Follow-up per [employer] 2017 recommendations below. EKG Normal sinus rhythm with sinus arrhythmia Left anterior fascicular block Impression - H&P Impression Assessment and Plan This is a 77 year old female with a PMH of Factor V Leiden mutation, hx. of DVT on long-term anticoagulation, HTN, CKD stage 3 - presents with substernal chest pain Chest Pain r/o ACS patient presented with substernal chest pain improved with nitro SL tabs currently with nitro paste on initial cardiac enzyme negative initial EKG with no ST;T wave changes will monitor in tele trend troponin obtain an echo cardiology consultation for further input Factor V Leiden Mutation Hx. of DVT on long-term anticoagulation continue Coumadin 5mg daily INR is 1.9 will add SQ Lovenox until INR is 2-3 CTA chest - no PE noted HTN recently changed Propranolol to Lisinopril continue Lisinopril and Diltiazem for blood pressure Nitro paste on for now CKD stage 3 creatinine at baseline avoid nephrotoxic agents when able DVT ppx Lovenox/Coumadin FULL CODE VTE Prophylaxis VTE Risk Assessment Done? Y/N: Yes Risk Level: Moderate Physical Exam (per Admitting): General Appearance: WD/WN, no apparent distress Head: normocephalic, atraumatic Eyes: normal inspection ENT: hearing grossly normal Neck: supple Respiratory/Chest: chest non-tender, lungs clear, normal breath sounds, no respiratory distress, no accessory muscle use Cardiovascular: regular rate, rhythm, no edema, no gallop, no JVD, no murmur , normal peripheral pulses Abdomen/GI: normal bowel sounds, non tender, soft Extremities/Musculoskelatal: normal inspection, no calf tenderness, normal capillary refill, no pedal edema, normal range of motion Neurologic/Psych: sitecore developer II-XII nml as tested, no motor/sensory deficits, alert , normal mood/affect, oriented x 3 Skin: normal color Lymphatic: no adenopathy Hospital Course This is a 77 year old female with a PMH of Factor V Leiden mutation, hx. of DVT on long-term anticoagulation, HTN, CKD stage 3 - presents with substernal chest pain Atypical Chest Pain r/o ACS patient presented with substernal chest pain improved with nitro SL tabs initial and cardiac enzyme negative initial EKG with no ST;T wave changes and repeat No change as well no arrhythmia in Tele has had more chest pressure this AM-Nitropaste reapplied Appreciate Cardiology input ECHO-done -report pending Likely stress test in AM Negative Exercise Stress ECHO Discharge home today Factor V Leiden Mutation Hx. of DVT on long-term anticoagulation continue Coumadin 5mg daily INR is 1.9 will add SQ Lovenox until INR is 2-3 CTA chest - no PE noted Continue Coumadin INR 1.7 today HTN recently changed Propranolol to Lisinopril continue Lisinopril and Diltiazem for blood pressure remains stable CKD stage 3 creatinine at baseline avoid nephrotoxic agents when able creatinine remains stable DVT ppx Lovenox/Coumadin FULL CODE Discharge home today Discussed with the Daughter Total time spent on discharge = 35 minutes This includes examination of the patient, discharge planning, medication reconciliation, and communication with other providers. Discharge Instructions Date of Service Jul 05, 2017. Admission Reason for Admission: Chest Pain Discharge Discharge Diagnosis / Problem: Atypical Chest pain-Negative Stress ECHO, GERD Discharge Goals Goal(s): Prevent Disease Progression Activity Recommendations Activity Limitations: resume your previous activity . Instructions / Follow-Up Instructions / Follow-Up Appointment with your PCP on 07/07/17 at 2:25 at [facility].Coag clinic notified Current Hospital Diet Patient's current hospital diet: AHA Diet (Heart Healthy) Discharge Diet Recommended Diet: AHA Diet (Heart Healthy) Pending Studies Studies pending at discharge: no Medical Emergencies . Who to Call and When: Medical Emergencies: If at any time you feel your situation is an emergency, please call 911 immediately. . Non-Emergent Contact Non-Emergency issues call your: Primary Care Provider . Past History Medical & Surgical History: (1) Chest pain (2) Hypertension (3) DVT (deep venous thrombosis) (4) CKD (chronic kidney disease) stage 3, GFR 30-59 ml/min (5) History of tubal ligation . "Provider Documentation" section prepared by Heath Choi. . VTE Core Measure Inpt VTE Proph given/why not?: Warfarin (Coumadin) <Electronically signed by Heath Choi M.D.> Signed: 07/05/17 [id number] Additional Copies To Jazz Artis PA-C
== END 2017-07-05 15:46 | disposition home or self-care (01) ==
LOC: C.EDB 11:19 → C.2E 14:34 → ENRESERV 16:08
PROVIDERS: ADMIT Family Medicine; ATTEND Internal Medicine
DX: R07.89 Other chest pain (principal); D68.51 Activated protein C resistance; K21.9 Gastro-esophageal reflux disease without esophagitis; N18.3 Chronic kidney disease, stage 3 (moderate); I12.9 Hypertensive chronic kidney disease with stage 1 through stage 4 chronic kidney disease, or unspecified chronic kidney disease; Z79.01 Long term (current) use of anticoagulants; Z79.899 Other long term (current) drug therapy; Z86.718 Personal history of other venous thrombosis and embolism